=== PATIENT | female | born 1945 | race Caucasian/White ===

== ENCOUNTER 2022-03-20 11:54 | Day surgery (SDC) | payer MEDICARE, OTHER ==
--- NOTE | 2022-03-20 09:30 | HP ---
DATE OF SURGERY: 03/20/2022 HISTORY OF PRESENT ILLNESS: The patient is a 76-year-old change in bowel habits increase in alternating loose stools improves and worsens. No regular bloody stool. She has an occasional hemorrhoid bleed. She has no new pain. Family history no colon cancer. PAST MEDICAL HISTORY: Hypertension, reflux, hyperlipidemia, depression, heart disease, heartburn. PAST SURGICAL HISTORY: Appendectomy. Back surgery. Hemorrhoidectomy. Hysterectomy. Hernia repair. Pacemaker. MEDICATIONS: Protonix, multivitamins, probiotic, calcium, sertraline, calcium carbonate/vitamin D3, Align, atorvastatin, famotidine, metoprolol. ALLERGIES: CODEINE. PENICILLIN. ERYTHROMYCIN. BANANA. GLUTEN. FAMILY HISTORY: Heart disease, breast cancer. SOCIAL HISTORY: No smoking or alcohol abuse. REVIEW OF SYSTEMS: Fourteen systems reviewed. No chest pain or palpitations. Other systems negative or noncontributory as above and per preadmission questionnaire. PHYSICAL EXAMINATION: GENERAL: No acute distress. HEENT: Sclerae nonicteric. NECK: No JVD. CHEST: Equal excursion, nonlabored breathing. CVS: Regular rate and rhythm. ABDOMEN: Soft. No peritoneal signs. EXTREMITIES: No significant edema. NEURO: Alert, oriented, moving extremities symmetrically. RECTAL: Deferred timed to endoscopy exam. PSYCH: Appropriate mood and affect. IMPRESSION: Change in bowel habits, some rectal bleeding and history of polyps. I recommend colonoscopy, possible internal hemorrhoid banding causing some prolapse or bleeding intermittently despite trying manage her medically. She was shown the risk sheet explained the procedure in detail including bleeding or infection, risk of bowel injury or perforation, risk of missed or nondiagnosis or incomplete exam possibly requiring barium enema, other studies or procedures, general risk of anesthesia or sedation, risk of bowel prep or sedation but not limited to. Risk of bleeding or infection from hemorrhoid banding, risks of aches, pain, pressure, sphincter spasm or irritability, risk of progression of hemorrhoid disease possibly requiring other procedures, remote risk of major infection. General risk of anesthesia or sedation, risk of bowel prep but not limited to, consent obtained. Will proceed with outpatient colonoscopy possible internal hemorrhoid banding as an outpatient.
[2022-03-20] MEDS: Lactated Ringers 1,000 ML IV SCH (13:00)
[2022-03-20] MEDS ORDERED: Xylocaine-Mpf 2% 5 Ml Vial ONE (14:34)
[2022-03-20] MEDS ORDERED: DIPRIVAN 200 MG/20 ML IV ONE ×2 (14:34→14:52)
[2022-03-20] MEDS ORDERED: ATROPINE SULFATE 1MG ONE (14:42)
[2022-03-20 15:46] VITALS: O2SAT 95
[2022-03-20 16:05] VITALS: BP 144/95; PULSE 66
--- NOTE | 2022-03-21 10:54 | OP ---
SURGERY DATE/TIME: 03/20/2022 9417 PREOPERATIVE DIAGNOSES: 1) Change in bowel movements. 2) History of some rectal bleeding internal and external hemorrhoids. POSTOPERATIVE DIAGNOSES: 1) Grade II to III internal and external hemorrhoids. 2) Diverticulosis. 3) Small cecal polyps. 4) ASA Class II. 5) Fair bowel prep. PROCEDURES: 1) Colonoscopy to terminal ileum. 2) Retrograde ileoscopy. 3) Random ileal biopsies to evaluate for microscopic ileitis. 4) Random colon biopsies to evaluate for microscopic colitis. 5) Hot biopsy polypectomy small early cecal polyp versus hyperplastic lesions. 6) Internal hemorrhoid banding x3 columns. SURGEON: Dr. Jose Ramon Thomas. ANESTHESIA: MAC. ESTIMATED BLOOD LOSS: Minimal. INDICATIONS: As noted above. Risks and benefits explained in detail but not limited to and consent obtained. DESCRIPTION OF PROCEDURE AND FINDINGS: The patient is taken to the endoscopy room. MAC anesthesia induced. After official time out and no disagreement with planned procedure, digital rectal exam revealed she had some internal and external hemorrhoids otherwise no masses. Video colonoscope inserted and passed up through the slightly tortuous sigmoid, descending, transverse and ascending colon around to the cecum. Appendiceal orifice and valve well visualized and photo documented. Given her change in bowel habits, the scope was able to passed up the terminal ileum. Retrograde ileoscopy grossly unremarkable. Random cold biopsies taken in the ileum to evaluate for microscopic ileitis and to evaluate for other causes of change in bowel habits. The scope is pulled back. Small polyp in the cecum removed with hot biopsy polypectomy. Good hemostasis noted. Otherwise random cold biopsies were taken throughout the colon to evaluate for microscopic colitis as there was no evidence of any macroscopic colitis. She did have some mild diverticulosis. She did have some grade II to III internal and external hemorrhoids. There were no signs of any large polyps, masses or obstructing lesions. The prep was fair. Withdrawal time was around nine minutes. Once the scope is withdrawn, she remained under MAC anesthesia as were waiting for a retractor to become available. Half-stein retractor carefully inserted. She had prominent internal hemorrhoids. It is felt this was causing her bleeding intermittently. Hemorrhoid suction field sales trainer carefully applied to the left lateral column, this is repeated on right posterior column and right anterior column with a good tuft of tissue in each column. Good hemostasis was noted. The patient tolerated the procedure well. She did have a little bit of external hemorrhoid component but it was felt that she had good bands on the internal component. Retractors are removed. The patient tolerated the procedure well. There were no immediate complications. Findings discussed with the family out in the waiting area.
== END 2022-03-20 16:12 | disposition home or self-care (01) ==
LOC: SDC 11:54
PROVIDERS: ATTEND Surgery
DX: K57.30 Diverticulosis of large intestine without perforation or abscess without bleeding (principal); R19.4 Change in bowel habit; Z87.19 Personal history of other diseases of the digestive system; K64.4 Residual hemorrhoidal skin tags; K64.8 Other hemorrhoids; K63.5 Polyp of colon
CPT/HCPCS: 99100; J0461; J2704

== ENCOUNTER 2023-03-06 10:46 | Emergency (ER) | payer MEDICARE, OTHER ==
[2023-03-06 11:08] VITALS: TEMP 97
--- NOTE | 2023-03-06 11:19 | ERPHSYRPT ---
- History of Present Illness Time Seen by Provider: 03/06/23 11:17 Source: patient Exam Limitations: no limitations Patient Subjective Stated Complaint: Swelling Triage Nursing Assessment: Patient ambulated back to ED with slow and steady gait. Patient A+O X3. Patient's skin pink, warm and dry. Patient complains of swelling and occasional SOB. Patient has edema noted to BLE, BUE and face. 2+ pitting edema noted to BLE. Patient denies pain or discomfort. Lungs clear a/p omid. Physician History: Patient is a 77-year-old female presents to our ED for evaluation of swelling to her feet legs and face. Patient states that she was recently started on prednisone to treat temporal arteritis. Since then patient developed swelling. Patient's bullet maker started her on Lasix. Patient states her swelling continued so the Lasix dose was increased from 40 daily to 40 twice daily. Patient states that she feels that her swelling has not improved. However she has noticed that her urine output has decreased. Patient called her bullet maker who advised her to come to our ED. Patient denies pain. Swelling observed on her face upper extremities and lower extremities. No other symptomology. No fever. No nausea vomiting or diaphoresis. No trauma. Symptoms are mild in intensity. No specific worsening improving factors. Patient voices no other complaints or concerns at this time. Portions of this note were created with voice recognition technology. There may be grammatical, spelling, punctuation or sound alike errors Timing/Duration: yesterday Severity: moderate Modifying Factors: Improves With: nothing Associated Symptoms: denies symptoms Allergies/Adverse Reactions: codeine Allergy (Verified 03/06/23 10:59) erythromycin base Allergy (Verified 03/06/23 10:59) gluten Allergy (Verified 03/06/23 10:59) Penicillins Allergy (Verified 03/06/23 10:59) banana Adverse Reaction (Mild, Verified 03/06/23 10:59) Nausea Home Medications: RX: PANTOPRAZOLE 40 mg Tablet [Protonix 40MG Tablet] 40 mg PO DAILY 12/12/14 [History] RX: Calcium Carbonate/Vitamin D3 [Calcium 600-Vit D3 800 Tablet] 1 each PO DAILY 01/27/15 [History] RX: Bifidobacterium Infantis [Align] 4 mg PO DAILY 07/04/15 [History] RX: Metoprolol Tartrate 25 mg [Lopressor 25MG Tab] 37.5 mg PO BID 07/04/15 [History] RX: Atorvastatin Calcium [Lipitor] 20 mg PO DAILY 02/07/22 [History] RX: Calcium Polycarbophil [Fiber] 625 mg PO DAILY 02/07/22 [History] RX: Famotidine 20 mg PO DAILY 02/07/22 [History] RX: Sertraline HCl [Zoloft] 25 mg PO DAILY 02/07/22 [History] Hx Tetanus, Diphtheria Vaccination/Date Given: Yes (ALLERGIC) Hx Influenza Vaccination/Date Given: Yes Hx Pneumococcal Vaccination/Date Given: No Immunizations Up to Date: Yes Travel Risk - International Travel Have you traveled outside of the country in past 3 weeks: No - Coronavirus Screening Are you exhibiting any of the following symptoms?: No Close contact with a COVID-19 positive Pt in past 14-21 Days: No - Vaccine Status Have you recieved a Covid-19 vaccination: No - Review of Systems Constitutional: No Symptoms, No Fever, No Chills Eyes: No Symptoms Ears, Nose, & Throat: No Symptoms Respiratory: No Symptoms, No Cough, No Dyspnea Cardiac: No Symptoms, No Chest Pain, No Edema, No Syncope Abdominal/Gastrointestinal: No Symptoms, No Abdominal Pain, No Nausea, No Vomiting, No Diarrhea Genitourinary Symptoms: No Symptoms, No Dysuria Musculoskeletal: No Symptoms, No Back Pain, No Neck Pain Skin: No Symptoms, No Rash Neurological: No Symptoms, No Dizziness, No Focal Weakness, No Sensory Changes Psychological: No Symptoms Endocrine: No Symptoms Hematologic/Lymphatic: No Symptoms Immunological/Allergic: No Symptoms All Other Systems: Reviewed and Negative - Past Medical History Pertinent Past Medical History: Yes Neurological History: TIA ENT History: No Pertinent History Cardiac History: Arrhythmia, Other Respiratory History: No Pertinent History Endocrine Medical History: No Pertinent History Musculoskeletal History: No Pertinent History GI Medical History: No Pertinent History History: No Pertinent History Psycho-Social History: No Pertinent History Female Reproductive Disorders: No Pertinent History Other Medical History: stomach issues. liver ablasion - Past Surgical History Past Surgical History: Yes Neuro Surgical History: No Pertinent History Cardiac: Pacemaker Respiratory: No Pertinent History Gastrointestinal: Appendectomy, Hemorrhoidectomy, Hernia Repair Genitourinary: No Pertinent History Musculoskeletal: No Pertinent History Female Surgical History: Hysterectomy Other Surgical History: back surgery, ovarian cyst removal - Social History Smoking Status: Never smoker Exposure to second hand smoke: No Drug Use: none Patient Lives Alone: No - Nursing Vital Signs Nursing Vital Signs: Initial Vital Signs Pulse Rate 71 03/06/23 11:00 Respiratory Rate 20 03/06/23 11:00 Blood Pressure 128/76 03/06/23 11:00 O2 Sat by Pulse Oximetry 95 03/06/23 11:00 Pain Scale Pain Intensity 3 - Physical Exam General Appearance: no apparent distress, alert Eye Exam: PERRL/EOMI, eyes nml inspection Ears, Nose, Throat Exam: normal ENT inspection, TMs normal, pharynx normal, moist mucous membranes Neck Exam: normal inspection, non-tender, supple, full range of motion Respiratory Exam: normal breath sounds, lungs clear, airway intact, No respiratory distress Cardiovascular Exam: regular rate/rhythm, normal heart sounds, normal peripheral pulses Gastrointestinal/Abdomen Exam: soft, normal bowel sounds, No tenderness, No mass Back Exam: normal inspection, normal range of motion, No CVA tenderness, No vertebral tenderness Extremity Exam: normal inspection, normal range of motion, pelvis stable, other (2+ pitting edema bilateral lower extremities) Neurologic Exam: alert, oriented x 3, cooperative, normal mood/affect, sensation nml, No motor deficits Skin Exam: normal color, warm, dry, No rash Lymphatic Exam: No adenopathy SpO2 Interpretation: normal SpO2: 96 O2 Delivery: Room Air - Course Nursing assessment & vital signs reviewed: Yes EKG Interpreted by Me: RATE (66), NORMAL AXIS, NORMAL INTERVALS, Other (Atrial paced rhythm. Borderline T wave abnormalities) - Radiology Exams Chest X-ray Interpretation: Teleradiologist Report (Hiatal hernia otherwise no acute findings) - CT Exams Abdomen/Pelvis CT Interpretation: Tele-radiologist Report (3 x 10 mm right middle lobe subpleural noncalcified nodule with tiny right effusion, large hiatal hernia, diverticulosis, hepatic cyst, left nephrolithiasis, atherosclerotic disease, chronic bony findings) Ordered Tests: Active Orders 24 hr Category Date Time Status Reserve Officer STAT Care 03/06/23 11:20 Active EKG-ER Only STAT Care 03/06/23 11:19 Active IV Insertion STAT Care 03/06/23 11:19 Active Pulse Oximetry (ED) STAT Care 03/06/23 11:19 Active ABDOMEN AND PELVIS W/0 CONTRAS [CT] Stat Exams 03/06/23 14:59 Completed CHEST 1 VIEW (PORTABLE) Stat Exams 03/06/23 13:36 Completed CBC W DIFF Stat Lab 03/06/23 11:12 Completed CMP Stat Lab 03/06/23 11:12 Completed NT PRO BNPII Stat Lab 03/06/23 11:12 Completed TROPONIN Q4H Lab 03/06/23 11:12 Completed TROPONIN Q4H Lab 03/06/23 15:07 Completed TROPONIN Q4H Lab 03/06/23 19:30 Ordered UA W/RFX UR CULTURE Stat Lab 03/06/23 11:21 Completed Lab/Rad Data: Laboratory Result Diagrams 03/06/23 11:12 03/06/23 11:12 Laboratory Results 03/06/23 03/06/23 03/06/23 Range/Units 15:07 11:21 11:12 WBC (4.0-10.5) x10^3/uL RBC (4.1-5.4) x10^6/uL Hgb (12.0-16.0) g/dL Hct (35-47) % MCV (78-100) fL MCH (26-32) pg MCHC (32-36) g/dL RDW (11.5-14.0) % Plt Count (150-450) x10^3/uL MPV (7.5-11.0) fL Gran % (36.0-66.0) % Immature Gran % (Auto) (0.00-0.4) % Nucleat RBC Rel Count (0.00-0.1) % Eos # (Auto) (0-0.5) x10^3/uL Immature Gran # (Auto) (0.00-0.03) x10^3u/L Absolute Lymphs (auto) (1.0-4.6) x10^3/uL Absolute Monos (auto) (0.0-1.3) x10^3/uL Absolute Nucleated RBC (0.00-0.01) x10^3u/L Lymphocytes % (24.0-44.0) % Monocytes % (0.0-12.0) % Eosinophils % (0.00-5.0) % Basophils % (0.0-0.4) % Absolute Granulocytes (1.4-6.9) x10^3/uL Basophils # (0-0.4) x10^3/uL Sodium (137-145) mmol/L Potassium (3.5-5.1) mmol/L Chloride (98-107) mmol/L Carbon Dioxide (22-30) mmol/L Anion Gap (5-15) MEQ/L BUN (7-17) mg/dL Creatinine (0.52-1.04) mg/dL Estimated GFR ML/MIN Glucose (74-106) mg/dL Calcium (8.4-10.2) mg/dL Total Bilirubin (0.2-1.3) mg/dL AST (14-36) U/L ALT (0-35) U/L Alkaline Phosphatase (38-126) U/L Troponin I 0.021 0.023 (0.000-0.034) ng/mL NT-Pro-B Natriuret Pep (<300) pg/mL Serum Total Protein (6.3-8.2) g/dL Albumin (3.5-5.0) g/dL Urine Color Yellow (Yellow) Urine Appearance Clear (Clear) Urine pH 7.5 (4.6-8.0) Ur Specific [place] <=1.005 (1.005-1.030) Urine Protein Negative (Negative) Urine Glucose (UA) Negative (Negative) mg/dL Urine Ketones Negative (Negative) Urine Blood Negative (Negative) Urine Nitrite Negative (Negative) Urine Bilirubin Negative (Negative) Urine Urobilinogen 0.2 (0.2) mg/dL Ur Leukocyte Esterase Negative (Negative) U Hyaline Cast (Auto) NONE SEEN (0-2) /LPF Urine Microscopic RBC 0-2 (0-5) /HPF Urine Microscopic WBC 0-2 (0-5) /HPF Ur Epithelial Cells None Seen (None Seen) /HPF Urine Bacteria None Seen (None Seen) /HPF Urine Culture Reflexed NO (NO) 03/06/23 03/06/23 Range/Units 11:12 11:12 WBC 7.5 (4.0-10.5) x10^3/uL RBC 4.11 (4.1-5.4) x10^6/uL Hgb 12.9 (12.0-16.0) g/dL Hct 39.3 (35-47) % MCV 95.6 (78-100) fL MCH 31.4 (26-32) pg MCHC 32.8 (32-36) g/dL RDW 16.0 H (11.5-14.0) % Plt Count 156 (150-450) x10^3/uL MPV 9.6 (7.5-11.0) fL Gran % 70.6 H (36.0-66.0) % Immature Gran % (Auto) 4.8 H (0.00-0.4) % Nucleat RBC Rel Count 0.3 H (0.00-0.1) % Eos # (Auto) 0.08 (0-0.5) x10^3/uL Immature Gran # (Auto) 0.36 H (0.00-0.03) x10^3u/L Absolute Lymphs (auto) 1.34 (1.0-4.6) x10^3/uL Absolute Monos (auto) 0.38 (0.0-1.3) x10^3/uL Absolute Nucleated RBC 0.02 H (0.00-0.01) x10^3u/L Lymphocytes % 18.0 L (24.0-44.0) % Monocytes % 5.1 (0.0-12.0) % Eosinophils % 1.1 (0.00-5.0) % Basophils % 0.4 (0.0-0.4) % Absolute Granulocytes 5.26 (1.4-6.9) x10^3/uL Basophils # 0.03 (0-0.4) x10^3/uL Sodium 138 (137-145) mmol/L Potassium 3.6 (3.5-5.1) mmol/L Chloride 105 (98-107) mmol/L Carbon Dioxide 29 (22-30) mmol/L Anion Gap 7.6 (5-15) MEQ/L BUN 25 H (7-17) mg/dL Creatinine 0.91 (0.52-1.04) mg/dL Estimated GFR > 60.0 ML/MIN Glucose 98 (74-106) mg/dL Calcium 8.8 (8.4-10.2) mg/dL Total Bilirubin 0.70 (0.2-1.3) mg/dL AST 27 (14-36) U/L ALT 31 (0-35) U/L Alkaline Phosphatase 80 (38-126) U/L Troponin I (0.000-0.034) ng/mL NT-Pro-B Natriuret Pep 406 (<300) pg/mL Serum Total Protein 6.0 L (6.3-8.2) g/dL Albumin 3.7 (3.5-5.0) g/dL Urine Color (Yellow) Urine Appearance (Clear) Urine pH (4.6-8.0) Ur Specific [place] (1.005-1.030) Urine Protein (Negative) Urine Glucose (UA) (Negative) mg/dL Urine Ketones (Negative) Urine Blood (Negative) Urine Nitrite (Negative) Urine Bilirubin (Negative) Urine Urobilinogen (0.2) mg/dL Ur Leukocyte Esterase (Negative) U Hyaline Cast (Auto) (0-2) /LPF Urine Microscopic RBC (0-5) /HPF Urine Microscopic WBC (0-5) /HPF Ur Epithelial Cells (None Seen) /HPF Urine Bacteria (None Seen) /HPF Urine Culture Reflexed (NO) - Progress Progress: improved Progress Note: Patient is a 77-year-old female presents to our ED for evaluation of generalized swelling. Patient recently started steroids for temporal arteritis. Patient and her bullet maker attribute the swelling to the steroid. Patient was started on Lasix. Patient is here because her swelling appears to have gotten worse. She has no other symptomology. No pain. No chest pain or shortness of breath. Although while here patient developed left mid abdominal pain while transitioning from sitting at the side of the bed to lying. We ordered a CAT scan. CAT scan abdomen pelvis shows no acute pathology. There is a right-sided lung nodule with a small effusion. Patient was informed of these findings along with family members. Patient understands the importance of follow-up regarding this lung nodule. Patient reports that she has a follow-up appointmen t with her primary care doctor and bullet maker tomorrow. EKG shows a paced rhythm. Chest x-ray shows a new hiatal hernia otherwise unremarkable. CBC CMP negative. Urinalysis negative. Will discharge home. Family at bedside. They voiced no other complaints or concerns at this time. Troponin negative x2 Portions of this note were created with voice recognition technology. There may be grammatical, spelling, punctuation or sound alike errors Complexity of problem addressed is moderate acute No critical care time Complex of data reviewed and analyzed is moderate. Test ordered test reviewed. Findings of laboratory and imaging studies were analyzed and clinically correlated with history and physical examination. Risk of complication and or risk of morbidity/mortality of patient management is low. Vital stable. Time spent to discharge patient is approximately 15 minutes. an of care established for shared decision making. No social determinants of health present to impede follow-up. Daughter and at bedside. All of their questions were answered. Patient will follow-up with her primary care doctor and bullet maker tomorrow as scheduled. Portions of this note were created with voice recognition technology. There may be grammatical, spelling, punctuation or sound alike errors 03/06/23 18:15 Counseled pt/family regarding: lab results, diagnosis, need for follow-up, rad results - Departure Departure Disposition: Home Clinical Impression: Right noncalcified lung nodule, Small right pleural effusion, Large hiatal hernia, Diverticulosis, Hepatic cyst, Left nephrolithiasis, Chronic bony findings, Atherosclerotic disease, Swelling Condition: Stable Critical Care Time: No Referrals: ADRIANA PATRICIO, CARLOS [Primary Care Provider] - Follow up/PCP as directed Instructions: Pleural effusion, Hiatal hernia Additional Instructions: Discharge/Care Plan BRANDO COLLINS was seen on 03/06/23 in the Emergency Room. The patient was counseled regarding Diagnosis,Lab results, Imaging studies, need for follow up and when to return to the Emergency Room. Prescriptions given: Discharge Note I have spoken with the patient and/or caregivers. I have explained the patient's condition, diagnosis and treatment plan based on the information available to me at this time. I have answered the patient's and/or caregiver's questions and addressed any concerns. The patient and/or caregivers have as good understanding of the patient's diagnosis, condition and treatment plan as can be expected at this point. The vital signs have been stable. The patient's condition is stable and appropriate for discharge from the emergency department. The patient will pursue further outpatient evaluation with the primary care physician or other designated or consulting physician as outlined in the discharge instructions. The patient and/or caregivers are agreeable to this plan of care and follow-up instructions have been explained in detail. The patient and/or caregivers have received these instruction. The patient/and or caregivers are aware that any significant change in condition or worsening of symptoms should prompt an immediate return to this or the closest emergency department or call 911.
[2023-03-06 11:25] LABS: Absolute Neutrophil Ct (ANC) 5.26 x10^3/uL (1.4-6.9); BASOPHIL % 0.4 % (0.0-0.4); Basophil (Absolute #) 0.03 x10^3/uL (0-0.4); Eosinophil % 1.1 % (0.00-5.0); Eosinophil (Absolute #) 0.08 x10^3/uL (0-0.5); Hematocrit 39.3 % (35-47); Hemoglobin 12.9 g/dL (12.0-16.0); IMMATURE GRAN # 0.36 x10^3u/L (0.00-0.03); IMMATURE GRAN % 4.8 % (0.00-0.4); Lymphocyte (Absolute #) 1.34 x10^3/uL (1.0-4.6); Mean Cell Volume 95.6 fL (78-100); Mean Corpuscular Hemoglobin 31.4 pg (26-32); Mean Corpuscular Hgb Concent. 32.8 g/dL (32-36); Mean Platelet Volume 9.6 fL (7.5-11.0); Monocyte (Absolute #) 0.38 x10^3/uL (0.0-1.3); Monocytes % 5.1 % (0.0-12.0); NUCLEATED RBC # 0.02 x10^3u/L (0.00-0.01); NUCLEATED RBC % 0.3 % (0.00-0.1); Neutrophil % 70.6 % (36.0-66.0); Platelet Count 156 x10^3/uL (150-450); Red Blood Count 4.11 x10^6/uL (4.1-5.4); White Blood Count 7.5 x10^3/uL (4.0-10.5)
[2023-03-06 11:51] LABS: ALBUMIN 3.7 g/dL (3.5-5.0); ALKALINE PHOSPHATASE 80 U/L (38-126); ANION GAP 7.6 MEQ/L (5-15); BLOOD UREA NITROGEN 25 mg/dL (7-17); CHLORIDE 105 mmol/L (98-107); Calcium 8.8 mg/dL (8.4-10.2); Carbon Dioxide 29 mmol/L (22-30); Creatinine 1 0.91 mg/dL (0.52-1.04); EST GLOMERULAR FILTRATION RATE > 60.0 ML/MIN; Glucose 98 mg/dL (74-106); NT PRO BNPII 406 pg/mL (<300); Potassium 3.6 mmol/L (3.5-5.1); SGOT/AST 27 U/L (14-36); SGPT/ALT 31 U/L (0-35); SODIUM 138 mmol/L (137-145)
[2023-03-06 12:14] LABS: Appearance Clear (Clear); Bacteria None Seen /HPF (None Seen); Bilirubin Negative (Negative); Blood Negative (Negative); Epithelial Cells None Seen /HPF (None Seen); Glucose, Urine Negative (Negative); Hyaline Casts NONE SEEN /LPF (0-2); Ketones Negative (Negative); Leukocyte Esterase Negative (Negative); Nitrite Negative (Negative); Ph 7.5 (4.6-8.0); Protein,Urine Dip Negative (Negative); RBC 0-2 /HPF (0-5); Specific Gravity <=1.005 (1.005-1.030); Urobilinogen 0.2 mg/dL (0.2); WBC 0-2 /HPF (0-5)
[2023-03-06 12:18] LABS: ADD URINE CULTURE? NO (NO)
--- NOTE | 2023-03-06 14:14 | XRAY ---
Indication: Chest pain. Comparison: November 28, 2019 Portable chest inflated and remains clear. Heart not enlarged again with left pacemaker. New hiatal hernia. Bony thorax intact.
--- NOTE | 2023-03-06 16:38 | XRAY ---
Indication: Left abdomen pain. Bilateral extremity swelling. Multiple contiguous axial images obtained through the abdomen and pelvis without contrast. Comparison: CT abdomen May 29, 2017 Lung bases again demonstrates minimal bibasilar subsegmental atelectasis/scarring. New incompletely visualized 3 x 10 mm right middle lobe subpleural noncalcified nodule and tiny right effusion. Heart not enlarged. New large hiatal hernia with partial intrathoracic stomach. Noncontrasted stomach and bowel loops nonobstructed. Again previous appendectomy and hysterectomy. Mild sigmoid diverticulosis without diverticulitis not previously imaged. Again a few tiny hepatic cysts and nonobstructing left renal punctate calculus. No free fluid/air. Remaining liver, gallbladder, pancreas, spleen, adrenal glands, kidneys, ureters, and bladder are unremarkable for noncontrast exam. Again minimal aortoiliac calcifications without AAA. Osseous structures intact again with osteopenia and mild lower lumbar degenerative changes. Impression: 1. New large hiatal hernia with partial intrathoracic stomach. 2. New incompletely visualized right middle lobe noncalcified nodule and tiny nonspecific right pleural effusion. 3. Chronic findings including sigmoid diverticulosis, hepatic cysts, nonobstructing left renal punctate calculus, arteriosclerotic disease, and chronic bony findings.
[2023-03-06 18:00] VITALS: O2SAT 96
[2023-03-06 18:02] VITALS: BP 134/92; PULSE 66
[2023-03-06 18:24] VITALS: RESP 18
== END 2023-03-06 18:36 | disposition home or self-care (01) ==
LOC: ED 10:46
DX: R91.1 Solitary pulmonary nodule (principal); J90 Pleural effusion, not elsewhere classified; K44.9 Diaphragmatic hernia without obstruction or gangrene; K57.90 Diverticulosis of intestine, part unspecified, without perforation or abscess without bleeding; K76.89 Other specified diseases of liver; N20.0 Calculus of kidney; I70.90 Unspecified atherosclerosis; M85.80 Other specified disorders of bone density and structure, unspecified site; M47.816 Spondylosis without myelopathy or radiculopathy, lumbar region; R60.9 Edema, unspecified; Z79.899 Other long term (current) drug therapy; Z28.310 Unvaccinated for COVID-19
CPT/HCPCS: 36000; 36415; 71045; 74176; 80053; 81001; 83880; 84484; 85025; 93005; 93041; 94760; 99284

== ENCOUNTER 2023-09-17 09:04 | Day surgery (SDC) | payer MEDICARE ==
[2023-09-17] MEDS ORDERED: Lactated Ringers 1,000 ML IV SCH (09:30)
[2023-09-17] MEDS ORDERED: Lactated Ringers 1,000 ML IV ONE (09:51)
--- NOTE | 2023-09-17 09:58 | HP ---
DATE OF SURGERY: 09/17/2023 HISTORY OF PRESENT ILLNESS: The patient is a 77-year-old with increased reflux starting four weeks ago, funny feeling upper esophagus mostly food going down okay and liquids going down okay. Family history of negative for esophageal cancer. Last EGD years ago. PAST MEDICAL HISTORY: Hypertension, reflux, hyperlipidemia, depression, heartburn. PAST SURGICAL HISTORY: Pacemaker/defibrillator. Appendectomy. Hemorrhoidectomy. Back surgery. Umbilical hernia. Hysterectomy. MEDICATIONS: Potassium chloride, amlodipine, Lasix, probiotic, multivitamin, calcium with vitamin D, sertraline, atorvastatin, pantoprazole, metoprolol. ALLERGIES: CODEINE. ERYTHROMYCIN. PENICILLIN. BANANA (NAUSEA). GLUTEN. FAMILY HISTORY: Breast cancer. Myocardial infarction. SOCIAL HISTORY: No smoking or alcohol abuse. REVIEW OF SYSTEMS: Twelve systems reviewed. No chest pain or palpitations. Other systems negative or noncontributory as above and per preadmission questionnaire. PHYSICAL EXAMINATION: Height 4 feet 11 inches. BMI 35. GENERAL: No acute distress. HEENT: Sclerae nonicteric. EOMI. Oral mucous membranes moist. NECK: No JVD. CHEST: Equal excursion, nonlabored breathing. CVS: Regular rate and rhythm. ABDOMEN: Soft. No peritoneal signs. EXTREMITIES: No cyanosis or edema. NEURO: Alert, oriented, moving extremities symmetrically. No gross motor deficits noted. PSYCH: Appropriate mood and affect. SKIN: Dry. IMPRESSION: Increased reflux needs EGD possible biopsy possible dilatation. Risks explained in detail but not limited to bleeding or infection, risk of bowel injury or perforation, risk of missed or nondiagnosis or incomplete exam possibly requiring barium swallow, other studies or procedures, possible no improvement in swallowing possibly requiring other procedures, dilation or referral. Possible narrowed area possible neurological or functional problem that would not benefit from dilatation. If dilatation performed and does improve swallowing might need repeated again down the road. The patient agrees to the procedure EGD possible biopsy possible dilatation as an outpatient. Otherwise, continue medications for hypertension and hyperlipidemia.
[2023-09-17] MEDS ORDERED: DIPRIVAN 200 MG/20 ML IV ONE (11:59)
[2023-09-17] MEDS ORDERED: Xylocaine-Mpf 2% 5 Ml Vial ONE (11:59)
[2023-09-17] MEDS ORDERED: Ephedrine Sulfate 50 MG/ML ONE (12:10)
[2023-09-17 13:01] VITALS: O2SAT 93
[2023-09-17 13:27] VITALS: BP 103/67; PULSE 68; RESP 16; TEMP 97.9
--- NOTE | 2023-09-18 09:17 | OP ---
SURGERY DATE/TIME: 09/17/2023 1202 PREOPERATIVE DIAGNOSIS: Increased reflux, history of some dysphagia upper esophagus, funny feeling upper esophagus. POSTOPERATIVE DIAGNOSES: 1) Proximal esophageal narrowing and spam without evidence of any mass or lesion endoluminally. 2) Small hiatal hernia. 3) Mild gastric erythema. 4) ASA Class III. PROCEDURES: 1) EGD with cold biopsy of antrum to evaluate for Helicobacter pylori. 2) Cold biopsy distal esophagus. 3) Proximal esophageal dilatation (20 balloon). SURGEON: Dr. Sidney Thmoas M.D. ANESTHESIA: MAC. QUANTITATIVE BLOOD LOSS: Minimal. INDICATIONS: As noted above and consent obtained. DESCRIPTION OF PROCEDURE AND FINDINGS: The patient is taken to the endoscopy room. MAC anesthesia introduced. After official time out and no disagreement with planned procedure, a bite block positioned. Video gastroscope passed down the oropharynx, proximal esophagus. No fred lesion or mass to biopsy but there was spasm and tightening there. The scope was able to be just passed through here. As she is having symptoms in that area, it was felt it warranted dilatation at the end of the procedure. Scope passed back down to the gastroesophageal junction which was about 32 to 33 cm. Z-line was fairly crisp. She did have some small hiatal hernia. Scope passed down through the stomach to the patent pylorus to the junction of the third and fourth portion of the duodenum. Duodenum grossly unremarkable. No signs of ulcers or lesions. Back in the stomach she did have some mild gastric erythema. Cold biopsy taken to evaluate for Helicobacter pylori. Good hemostasis noted. On retroflex, she did have a small hiatal hernia. The scope is straightened. No signs of any ulcers. No signs of any lesions. Small hiatal hernia. The gastroesophageal junction was about 32 to 33 cm. Cold biopsy taken distal esophageal for path. Good hemostasis noted. There were no signs of any erosions. No signs of any gross Franklin's. No signs of any obvious masses to account for her swallowing problem. She did have a spasm and narrowing at the proximal esophagus. It was felt it warranted dilatation. Scope passed back down the stomach. The 20 balloon catheter is carefully inserted, pulled back up in the stomach and in wide open area and pulled up through the narrowed area in the proximal esophagus and gradually inflated first stage for 15 to 30 seconds, second stage 15 to 30 seconds and final stage for approximately 2 minutes with 20 balloon catheter. It was then decompressed. The balloon catheter removed. The scope more easily passed through this area. Back into the stomach and carefully withdrawn. There were no signs of any full thickness issues or injury secondary to dilatation. Findings discussed with the family out in the waiting area.
== END 2023-09-17 13:35 | disposition home or self-care (01) ==
LOC: SDC 09:04
PROVIDERS: ATTEND Surgery
DX: K22.2 Esophageal obstruction (principal); K21.9 Gastro-esophageal reflux disease without esophagitis; Z87.19 Personal history of other diseases of the digestive system; K44.9 Diaphragmatic hernia without obstruction or gangrene; K31.89 Other diseases of stomach and duodenum; Z80.3 Family history of malignant neoplasm of breast
CPT/HCPCS: 99100; C1726; J2704

== ENCOUNTER 2023-12-19 23:42 | Emergency (ER) | payer MEDICARE ==
[2023-12-19 23:55] VITALS: TEMP 96.9; O2SAT 95
[2023-12-20 00:21] LABS: Bacteria None Seen /HPF (None Seen); Bilirubin Negative (Negative); Blood Large (Negative); Epithelial Cells None Seen /HPF (None Seen); Glucose, Urine Negative (Negative); Hyaline Casts NONE SEEN /LPF (0-2); Ketones Negative (Negative); Leukocyte Esterase Moderate (Negative); Nitrite Negative (Negative); Ph 5.5 (4.6-8.0); Protein,Urine Dip 30 (Negative); RBC >100 /HPF (0-5); Urobilinogen 0.2 mg/dL (0.2); WBC 21-50 /HPF (0-5)
[2023-12-20 00:23] LABS: ADD URINE CULTURE? YES (NO); Appearance Sl Cloudy* (Clear)
[2023-12-20 00:40] VITALS: BP 131/85; PULSE 60; RESP 18
[2023-12-20] MEDS ORDERED: Levofloxacin 500 MG Tablet ONE (00:40)
[2023-12-20] MEDS: Levofloxacin 500 MG Tablet PO ONE (00:40)
--- NOTE | 2023-12-20 00:40 | ERPHSYRPT ---
- History of Present Illness Time Seen by Provider: 12/20/23 00:15 Source: patient, family Exam Limitations: no limitations Patient Subjective Stated Complaint: noticed some blood in my urine around 10pm tonight Triage Nursing Assessment: pt ambulated into ER without difficulty, spouse at bedside. Pt alert and oriented x4. Pt c/o having blood in her urine this evening around 10pm when she went to the bathroom. Pt c/o flank pain, urgency and frequency as well. Pt denies any pain. Abd lg, soft with active bs x4 quad, nontender. LBM 12/18/23. Physician History: This is a 78-year-old white female patient who presents to the emergency department by private vehicle brought in by her because of mild flank discomfort and hematuria. Patient denies chest pain. Patient denies shortness of breath. Patient denies abdominal pain. Patient noticed that she had frequency of urine as well. Patient is concerned she have a urinary tract infection. She has had similar symptoms in the past. Patient states that she has taken sulfa drugs in the past but it did not sit well with her. She does not have a true allergy to it though. Timing/Duration: today Activites at Onset: none Quality: other (Bilateral flank discomfort) Onset Location: generalized flank (Mild) Pain Radiation: none Severity of Pain-Max: mild Severity of Pain-Current: mild Sexual intercourse history: non-contributory Modifying Factors: Improves With: nothing Associated Symptoms: urinary frequency (And associated hematuria), No abdominal pain, No fever, No chills, No loss of bladder control Allergies/Adverse Reactions: codeine Allergy (Verified 12/20/23 00:04) erythromycin base Allergy (Verified 12/20/23 00:04) gluten Allergy (Verified 12/20/23 00:04) Penicillins Allergy (Verified 12/20/23 00:04) banana Adverse Reaction (Mild, Verified 12/20/23 00:04) Nausea Home Medications: PANTOPRAZOLE 40 mg Tablet [Protonix 40MG Tablet] 40 mg PO DAILY 12/12/14 [History] Calcium Carbonate/Vitamin D3 [Calcium 600-Vit D3 800 Tablet] 1 each PO DAILY 01/27/15 [History] Metoprolol Tartrate 25 mg [Lopressor 25MG Tab] 1.5 tab PO BID 07/04/15 [History] Atorvastatin Calcium [Lipitor] 20 mg PO DAILY 02/07/22 [History] Famotidine 40 mg PO HS 02/07/22 [History] Sertraline HCl [Zoloft] 60 mg PO HS 02/07/22 [History] Amlodipine Besylate 5 mg [Norvasc 5 mg] 2.5 mg PO DAILY 09/17/23 [History] Furosemide 40 mg [Lasix 40 MG] 40 mg PO DAILY PRN PRN 09/17/23 [History] Potassium Chloride 1 cap PO DAILY PRN PRN 09/17/23 [History] Clobetasol Propionate/Emoll [Clobetasol Emollient 0.05% Crm] 1 applic INTRAVAGIN DAILY 12/20/23 [History] Hx Tetanus, Diphtheria Vaccination/Date Given: No (allergic to) Hx Influenza Vaccination/Date Given: Yes Hx Pneumococcal Vaccination/Date Given: Yes Travel Risk - International Travel Have you traveled outside of the country in past 3 weeks: No - Emerging Infectious Disease Are you exhibiting symptoms associated with any current EIDs: No - Review of Systems Constitutional: No Symptoms Eyes: No Symptoms Ears, Nose, & Throat: No Symptoms Respiratory: No Symptoms Cardiac: No Symptoms Abdominal/Gastrointestinal: No Symptoms Genitourinary Symptoms: Frequency, Hematuria, Urgency, Flank Pain (Mild discomfort generally) Musculoskeletal: No Symptoms Skin: No Symptoms Neurological: No Symptoms Psychological: No Symptoms Endocrine: No Symptoms Hematologic/Lymphatic: No Symptoms Immunological/Allergic: No Symptoms All Other Systems: Reviewed and Negative - Past Medical History Pertinent Past Medical History: Yes Neurological History: TIA ENT History: No Pertinent History Cardiac History: Arrhythmia, Other Respiratory History: No Pertinent History Endocrine Medical History: No Pertinent History Musculoskeletal History: No Pertinent History GI Medical History: GERD History: No Pertinent History Psycho-Social History: No Pertinent History Female Reproductive Disorders: No Pertinent History Other Medical History: liver ablasion - Past Surgical History Past Surgical History: Yes Neuro Surgical History: No Pertinent History Cardiac: Pacemaker Respiratory: No Pertinent History Gastrointestinal: Appendectomy, Hemorrhoidectomy, Hernia Repair Genitourinary: No Pertinent History Musculoskeletal: No Pertinent History Female Surgical History: Hysterectomy Other Surgical History: back surgery, ovarian cyst removal - Social History Smoking Status: Never smoker Exposure to second hand smoke: No Drug Use: none Patient Lives Alone: No - Social Determinants of Health Will the patient participate in the screening: Yes Do you worry about a steady place to live?: No Do you have any problems with any of the following?: No known problems In the past 12 months,have you had to go without utilities?: No Transportation Issues: No Has anyone in your support network made you feel unsafe?: No Have you or anyone in your house had to go without enough: No - Nursing Vital Signs Nursing Vital Signs: Initial Vital Signs Temperature 96.9 F 12/19/23 23:53 Pulse Rate 69 12/19/23 23:53 Respiratory Rate 16 12/19/23 23:53 Blood Pressure 126/77 12/19/23 23:53 O2 Sat by Pulse Oximetry 95 12/19/23 23:53 Pain Scale Pain Intensity 0 - Physical Exam General Appearance: no apparent distress, alert, obese Eye Exam: PERRL/EOMI, eyes nml inspection Ears, Nose, Throat Exam: normal ENT inspection, moist mucous membranes Neck Exam: normal inspection, non-tender, supple, full range of motion Respiratory Exam: airway intact, No chest tenderness, No respiratory distress Gastrointestinal/Abdomen Exam: soft, normal bowel sounds, No tenderness Pelvic Exam: not done Rectal Exam: not done Back Exam: normal inspection, normal range of motion, No CVA tenderness, No vertebral tenderness Extremity Exam: normal inspection, normal range of motion, pelvis stable Neurologic Exam: alert, oriented x 3, cooperative, property worker II-XII nml as tested, no rmal mood/affect, nml cerebellar function, nml station & gait, sensation nml Skin Exam: normal color, warm, dry Lymphatic Exam: No adenopathy SpO2 Interpretation: normal SpO2: 95 O2 Delivery: Room Air - Course Nursing assessment & vital signs reviewed: Yes Ordered Tests: Active Orders 24 hr Category Date Time Status CULTURE,URINE Stat Lab 12/19/23 23:57 Received UA W/RFX UR CULTURE Stat Lab 12/19/23 23:57 Completed Lab/Rad Data: Laboratory Results 12/19/23 Range/Units 23:57 Urine Color Red A (Yellow) Urine Appearance Sl Cloudy* A (Clear) Urine pH 5.5 (4.6-8.0) Ur Specific [place] 1.010 (1.005-1.030) Urine Protein 30 (Negative) Urine Glucose (UA) Negative (Negative) mg/dL Urine Ketones Negative (Negative) Urine Blood Large A (Negative) Urine Nitrite Negative (Negative) Urine Bilirubin Negative (Negative) Urine Urobilinogen 0.2 (0.2) mg/dL Ur Leukocyte Esterase Moderate A (Negative) U Hyaline Cast (Auto) NONE SEEN (0-2) /LPF Urine Microscopic RBC >100 A (0-5) /HPF Urine Microscopic WBC 21-50 A (0-5) /HPF Ur Epithelial Cells None Seen (None Seen) /HPF Urine Bacteria None Seen (None Seen) /HPF Urine Culture Reflexed YES (NO) - Progress Progress: unchanged Air Movement: good Progress Note: 12/20/23 00:38 My medical decision making and the assignment of low complexity to this patient's medical issue today is based on review of the patient's past medical history, review the patient's medication list, review the patient drug allergy list, history present illness and physical findings on examination. The workup in this patient includes urinalysis. No other radiographic or laboratory studies are necessary. Counseled pt/family regarding: lab results, diagnosis, need for follow-up Medical Desision Making - Independent Historian Additional History obtained from: Spouse - Diagnostic Testing Diagnostic test were ordered, analyzed, and reviewed by me: Yes - Risk of complications The pt has a mod risk of morbidity or mortality based on: Need for prescription drug management - Departure Departure Disposition: Home Clinical Impression: UTI (urinary tract infection) Condition: Stable Critical Care Time: No Referrals: ADRIANA PATRICIO, HOUSING OFFICER [Primary Care Provider] - Follow up/PCP as directed Additional Instructions: Drink plenty of clear liquids. May use Tylenol and ibuprofen for pain control if there are no contraindications to do so. Take your medications as presc ribed. Call your primary care physician later today to make arranges for follow-up appointment for further evaluation and management. Prescriptions: Ciprofloxacin [Cipro 500 MG] 500 mg PO BID #14 tablet
== END 2023-12-20 00:54 | disposition home or self-care (01) ==
LOC: ED 23:42
DX: N39.0 Urinary tract infection, site not specified (principal); R31.9 Hematuria, unspecified; R10.9 Unspecified abdominal pain; Z79.899 Other long term (current) drug therapy
CPT/HCPCS: 81001; 87086; 99283; A9270-GY

== ENCOUNTER 2024-05-14 14:21 | Emergency (ER) | payer MEDICARE ==
[2024-05-14 14:38] VITALS: PULSE 78; RESP 18; TEMP 97.7; O2SAT 95
[2024-05-14 14:44] LABS: Appearance Clear (Clear); Bacteria Rare /HPF (None Seen); Bilirubin Negative (Negative); Blood Negative (Negative); Epithelial Cells Few /HPF (None Seen); Glucose, Urine Negative (Negative); Ketones Negative (Negative); Leukocyte Esterase Trace (Negative); Nitrite Negative (Negative); Protein,Urine Dip Negative (Negative); RBC 0-2 /HPF (0-5); Urobilinogen 0.2 mg/dL (0.2)
--- NOTE | 2024-05-14 14:54 | ERPHSYRPT ---
- History of Present Illness Time Seen by Provider: 05/14/24 14:51 Historian: patient Exam Limitations: no limitations Patient Subjective Stated Complaint: C/O sudden onset of left sided abdominal pain around 1pm today. Pain has improved since that time but not resolved. No N/V. States she did start having some diarrhea around that same time. Triage Nursing Assessment: Patient ambulated back to ER. She is alert and oriented. Holding left side at times. No SOB. Skin tone normal. Prefers to sit on the side of the bed instead of ly down. Physician History: C/O sudden onset of left sided abdominal pain around 1pm today. Pain has improved since that time but not resolved. No N/V. States she did start having some diarrhea around that same time. Timing/Duration: today Activities at Onset: none Quality: cramping, fullness Abdominal Pain Onset Location: LLQ, flank Pain Radiation: LUQ Severity of Pain-Max: mild Severity of Pain-Current: moderate Modifying Factors: Improves With: nothing Associated Symptoms: denies symptoms Previous symptoms: no prior history Allergies/Adverse Reactions: azithromycin Allergy (Verified 05/14/24 14:33) codeine Allergy (Verified 05/14/24 14:27) erythromycin base Allergy (Verified 05/14/24 14:27) gluten Allergy (Verified 05/14/24 14:27) Penicillins Allergy (Verified 05/14/24 14:27) banana Adverse Reaction (Mild, Verified 05/14/24 14:27) Nausea Home Medications: PANTOPRAZOLE 40 mg Tablet [Protonix 40MG Tablet] 40 mg PO DAILY 12/12/14 [History] Calcium Carbonate/Vitamin D3 [Calcium 600-Vit D3 800 Tablet] 1 each PO DAILY 01/27/15 [History] Metoprolol Tartrate 25 mg [Lopressor 25MG Tab] 1.5 tab PO BID 07/04/15 [History] Atorvastatin Calcium [Lipitor] 20 mg PO DAILY 02/07/22 [History] Famotidine 40 mg PO HS 02/07/22 [History] Sertraline HCl [Zoloft] 60 mg PO HS 02/07/22 [History] Amlodipine Besylate 5 mg [Norvasc 5 mg] 2.5 mg PO DAILY 09/17/23 [History] Furosemide 40 mg [Lasix 40 MG] 40 mg PO DAILY PRN PRN 09/17/23 [History] Potassium Chloride 1 cap PO DAILY PRN PRN 09/17/23 [History] Clobetasol Propionate/Emoll [Clobetasol Emollient 0.05% Crm] 1 applic INTRAVAGIN DAILY 12/20/23 [History] Hx Tetanus, Diphtheria Vaccination/Date Given: Yes Hx Influenza Vaccination/Date Given: Yes Hx Pneumococcal Vaccination/Date Given: Yes Immunizations Up to Date: Yes Travel Risk - International Travel Have you traveled outside of the country in past 3 weeks: No - Emerging Infectious Disease Are you exhibiting symptoms associated with any current EIDs: Yes Symptoms: Abdominal Pain, Diarrhea - Review of Systems Constitutional: No Fever, No Chills Eyes: No Symptoms Ears, Nose, & Throat: No Symptoms Respiratory: No Cough, No Dyspnea Cardiac: No Chest Pain, No Edema, No Syncope Abdominal/Gastrointestinal: Abdominal Pain, No Nausea, No Vomiting, No Diarrhea Genitourinary Symptoms: No Dysuria Musculoskeletal: No Back Pain, No Neck Pain Skin: No Rash Neurological: No Dizziness, No Focal Weakness, No Sensory Changes Psychological: No Symptoms Endocrine: No Symptoms All Other Systems: Reviewed and Negative - Past Medical History Pertinent Past Medical History: Yes Neurological History: TIA ENT History: No Pertinent History Cardiac History: Arrhythmia, Other Respiratory History: No Pertinent History Endocrine Medical History: No Pertinent History Musculoskeletal History: No Pertinent History GI Medical History: GERD History: No Pertinent History Psycho-Social History: No Pertinent History Female Reproductive Disorders: No Pertinent History Other Medical History: liver ablasion - Past Surgical History Past Surgical History: Yes Neuro Surgical History: No Pertinent History Cardiac: Pacemaker Respiratory: No Pertinent History Gastrointestinal: Appendectomy, Hemorrhoidectomy, Hernia Repair Genitourinary: No Pertinent History Musculoskeletal: No Pertinent History Female Surgical History: Hysterectomy Other Surgical History: back surgery, ovarian cyst removal - Social History Smoking Status: Never smoker Exposure to second hand smoke: No Drug Use: none Patient Lives Alone: No - Social Determinants of Health Will the patient participate in the screening: Yes Do you worry about a steady place to live?: No Do you have any problems with any of the following?: No known problems In the past 12 months,have you had to go without utilities?: No Transportation Issues: No Has anyone in your support network made you feel unsafe?: No Have you or anyone in your house had to go without enough: No - Nursing Vital Signs Nursing Vital Signs: Initial Vital Signs Blood Pressure 143/101 05/14/24 14:31 Pain Scale Pain Intensity 5 - Physical Exam General Appearance: no apparent distress, alert Eye Exam: PERRL/EOMI, eyes nml inspection Ears, Nose, Throat Exam: normal ENT inspection, pharynx normal, moist mucous membranes Neck Exam: normal inspection, non-tender, supple, full range of motion Respiratory Exam: normal breath sounds, lungs clear, No respiratory distress Cardiovascular Exam: regular rate/rhythm, normal heart sounds Gastrointestinal/Abdomen Exam: soft, tenderness (LLQ), No mass, No guarding, No rebound, No hepatomegaly, No organomegaly, No splenomegaly Pelvic Exam: not done Rectal Exam: deferred Back Exam: normal inspection, normal range of motion, No CVA tenderness, No vertebral tenderness Extremity Exam: normal inspection, normal range of motion, pelvis stable Neurologic Exam: alert, oriented x 3, cooperative, normal mood/affect, nml cerebellar function, sensation nml, No motor deficits Skin Exam: normal color, warm, dry SpO2 Interpretation: normal SpO2: 95 O2 Delivery: Room Air - Course Nursing assessment & vital signs reviewed: Yes Ordered Tests: Active Orders 24 hr Category Date Time Status ABDOMEN AND PELVIS W CONTRAST [CT] Stat Exams 05/14/24 14:53 Completed AMYLASE Stat Lab 05/14/24 15:24 Completed CBC W DIFF Stat Lab 05/14/24 15:24 Completed CMP Stat Lab 05/14/24 15:24 Completed LIPASE Stat Lab 05/14/24 15:24 Completed UA W/RFX UR CULTURE Stat Lab 05/14/24 14:37 Completed Medication Summary Generic Name Dose Route Start Last Admin Trade Name Freq PRN Reason Stop Dose Admin Ceftriaxone Sodium 1 gm in 100 mls @ 200 mls/hr 05/14/24 16:56 05/14/24 17:39 Rocephin 1 Gm / 100 Ml Nacl IV 05/14/24 17:25 Infused STAT ONE Infusion Discontinued Medications Generic Name Dose Route Start Last Admin Trade Name Freq PRN Reason Stop Dose Admin Sodium Chloride 1,000 mls @ 999 mls/hr 05/14/24 14:44 05/14/24 16:16 Sodium Chloride 0.9% 1000 Ml IV 05/14/24 15:44 Infused .Q1H1M STA Infusion Sodium Chloride Confirm 05/14/24 15:12 Sodium Chloride 0.9% 1000 Ml Administered 05/14/24 15:13 Dose 1,000 mls @ ud .ROUTE .STK-MED ONE Ketorolac Tromethamine 30 mg 05/14/24 17:44 Ketorolac Tromethamine 30 Mg/Ml Inj IV 05/14/24 17:45 STAT ONE Ondansetron HCl 4 mg 05/14/24 14:44 05/14/24 15:13 Ondansetron Hcl 4 Mg/2 Ml Vial IV 05/14/24 14:45 4 mg STAT ONE Administration Ondansetron HCl Confirm 05/14/24 15:12 Ondansetron Hcl 4 Mg/2 Ml Vial Administered 05/14/24 15:13 Dose 4 mg .ROUTE .STK-MED ONE Tamsulosin HCl 0.4 mg 05/14/24 17:45 Tamsulosin Hcl 0.4 Mg Cap PO 05/14/24 17:46 DAILY STA Lab/Rad Data: Laboratory Result Diagrams 05/14/24 15:24 05/14/24 15:24 Laboratory Results 05/14/24 05/14/24 05/14/24 Range/Units 15:24 15:24 14:37 WBC 7.7 (3.98-10.04) x10^3/uL RBC 4.50 (3.93-5.22) x10^6/uL Hgb 13.8 (11.2-15.7) g/dL Hct 41.5 (34.1-44.9) % MCV 92.2 (79.4-94.8) fL MCH 30.7 (25.6-32.2) pg MCHC 33.3 (32.2-35.5) g/dL RDW 13.4 (11.7-14.4) % Plt Count 242 (182-369) x10^3/uL MPV 9.3 L (9.4-12.3) fL Gran % 74.4 H (34.0-71.1) % Immature Gran % (Auto) 0.8 H (0.001-0.429) % Nucleat RBC Rel Count 0.0 (0.00-0.2) % Eos # (Auto) 0.26 (0.04-0.36) x10^3/uL Immature Gran # (Auto) 0.06 H (0.001-0.031) x10^3u/L Absolute Lymphs (auto) 0.95 L (1.18-3.74) x10^3/uL Absolute Monos (auto) 0.63 (0.24-0.86) x10^3/uL Absolute Nucleated RBC 0.00 (0.00-0.012) x10^3u/L Lymphocytes % 12.3 L (19.3-51.7) % Monocytes % 8.2 (4.7-12.5) % Eosinophils % 3.4 (0.7-5.8) % Basophils % 0.9 (0.1-1.2) % Absolute Granulocytes 5.76 (1.56-6.13) x10^3/uL Basophils # 0.07 (0.01-0.08) x10^3/uL Sodium 140 (135-145) mmol/L Potassium 3.2 L (3.5-5.1) mmol/L Chloride 103 (98-107) mmol/L Carbon Dioxide 28 (22-30) mmol/L Anion Gap 12.2 (5-15) MEQ/L BUN 24 H (7-17) mg/dL Creatinine 1.14 H (0.52-1.04) mg/dL Estimated GFR 49.3 ML/MIN Glucose 106 (74-106) mg/dL Calcium 9.3 (8.4-10.2) mg/dL Total Bilirubin 0.30 (0.2-1.3) mg/dL AST 33 (14-36) U/L ALT 16 (0-35) U/L Alkaline Phosphatase 100 (38-126) U/L Serum Total Protein 7.7 (6.3-8.2) g/dL Albumin 4.4 (3.5-5.0) g/dL Amylase 54 (30-110) U/L Lipase 93 (23-300) U/L Urine Color Yellow (Yellow) Urine Appearance Clear (Clear) Urine pH 6.0 (4.6-8.0) Ur Specific [place] 1.010 (1.005-1.030) Urine Protein Negative (Negative) Urine Glucose (UA) Negative (Negative) mg/dL Urine Ketones Negative (Negative) Urine Blood Negative (Negative) Urine Nitrite Negative (Negative) Urine Bilirubin Negative (Negative) Urine Urobilinogen 0.2 (0.2) mg/dL Ur Leukocyte Esterase Trace A (Negative) U Hyaline Cast (Auto) 3-5 A (0-2) /LPF Urine Microscopic RBC 0-2 (0-5) /HPF Urine Microscopic WBC 3-5 (0-5) /HPF Ur Epithelial Cells Few (None Seen) /HPF Urine Bacteria Rare A (None Seen) /HPF Urine Culture Reflexed NO (NO) CLINICAL HISTORY: LLQ abdominal pain COMPARISON: None. TECHNIQUE: CT of the abdomen and pelvis was performed with contrast, with the following protocol: axial images with, and reconstructed coronal and sagittal images. One of the following dose reduction techniques was utilized for this exam: Automated exposure control, adjustment of the mA and/or kV according to patient size, and use of iterative reconstruction. 80 CC Isovue 370 was given as an IV contrast. FINDINGS: Abdomen: Coarse calcifications in the right pleurodiaphragmatic area. Liver: Normal in size, shape, and density. Multiple well-defined hypodense hepatic focal lesions are seen, largest in left lobe segment II measuring 13 mm, most likely simple cysts. Hepatic vasculature and biliary ducts are unremarkable. Gallbladder and Biliary System: The gallbladder is normal in size and shape. No wall thickening, pericholecystic fluid, or gallstones were identified. The common bile duct is normal in caliber without dilation. Pancreas: Pancreatic head, body, and tail are visualized and appear normal in size and density. No pancreatic masses or calcifications were noted. The pancreatic duct is not dilated. Spleen: Normal in size, shape, and density. No splenic lesions or masses were identified. Kidneys and Adrenal Glands: Left moderate back pressure changes with mildly to moderately dilated left ureter down to distal ureteric / uretrovesical junction measuring 4.5 mm with density of 329 HU. Another smaller proximal stone measuring 3.2 mm. Both kidneys are normal in size, shape, and position. Cortical thickness is within normal limits. Adrenal glands are unremarkable with no evidence of masses or hyperplasia. Pelvis: Urinary Bladder: No adequately filled hindering proper assessment No intraluminal lesions were identified. Uterus: Small with calcifications Ovaries: Not well visualized but no gross abnormalities were noted. Vagina: Normal in contour and wall thickness. Peritoneal and Retroperitoneal Structures: No free fluid or abnormal fluid collections were identified within the abdomen or pelvis. No lymphadenopathy was noted. Stomach: Sliding hiatus hernia with large size of the stomach seen in the chest cavity. Mild wall edema is noted. The appendix is not visualized however no fat stranding or collection is seen in the right iliac fossa. Bowel: Non-complicated sigmoid diverticulosis is noted No evidence of bowel obstruction or wall thickening. Colonic diverticulosis without CT evidence of acute diverticulitis. No evidence of bowel obstruction. Bones and Soft Tissues: Osteopenic texture of bones Scoliotic deformity of the spine, convex to the right side Spine degenerative changes are seen No fractures or abnormal masses were identified. IMPRESSION: page 2 of 3 1. Left lower ureteric two stones as described with left mild to moderate hydrouretronephrosis. 2. Multiple hepatic focal lesions are likely cystic. 3. Sliding hiatus hernia with gastric wall edema 4. Noncomplicated sigmoid colon diverticulosis. - Progress Progress: improved, pain not gone completely Counseled pt/family regarding: lab results, diagnosis, need for follow-up, rad results Medical Desision Making - Independent Historian Additional History obtained from: Spouse, Family - Diagnostic Testing Diagnostic test were ordered, analyzed, and reviewed by me: Yes Radiological Interpretation: Teleradiologist Report - Risk of complications The pt has a mod risk of morbidity or mortality based on: Need for prescription drug management - Departure Departure Disposition: Home Clinical Impression: Hepatic cyst, Ureteral stone with hydronephrosis Diverticulitis large intestine Qualifiers: Diverticulitis bleeding: without bleeding Diverticulitis complication: without perforation or abscess Qualified Code(s): K57.32 - Diverticulitis of large intestine without perforation or abscess without bleeding Condition: Stable Critical Care Time: No Referrals: ADRIANA PATRICIO NP [Primary Care Provider] - Follow up/PCP as directed Instructions: Diverticulitis, Kidney stones in adults Additional Instructions: You have a kidney stone which is passing through your left side of the ureter and it is at the end of the ureter so you are going to pass it into your bladder pretty soon. You also have a diverticulitis which is the infection of your lower part of the large colon which is in very early stage. Take your antibio tic and Flomax to help you pass the stone as well as to help treating your diverticulitis. Please strain your urine for stone and bring the stone back if you can strain it to the lab for further evaluation. Follow-up with your primary care physician in next 2 to 3 days. If your symptoms recur you can come back to emergency room Discharge/Care Plan BRANDO COLLINS was seen on 05/14/24 in the Emergency Room. The patient was counseled regarding Diagnosis,Lab results, Imaging studies, need for follow up and when to return to the Emergency Room. Prescriptions given: Discharge Note I have spoken with the patient and/or caregivers. I have explained the patient's condition, diagnosis and treatment plan based on the information available to me at this time. I have answered the patient's and/or caregiver's questions and addressed any concerns. The patient and/or caregivers have as good understanding of the patient's diagnosis, condition and treatment plan as can be expected at this point. The vital signs have been stable. The patient's condition is stable and appropriate for discharge from the emergency department. The patient will pursue further outpatient evaluation with the primary care physician or other designated or consulting physician as outlined in the discharge instructions. The patient and/or caregivers are agreeable to this plan of care and follow-up instructions have been explained in detail. The patient and/or caregivers have received these instruction. The patient/and or caregivers are aware that any significant change in condition or worsening of symptoms should prompt an immediate return to this or the closest emergency department or call 911. BRANDO COLLINS was seen on 05/14/24 n the Emergency Room. At that time you were treated for an emergent condition, during your visit Laboratory, Radiology and/or other procedures may have been ordered. It is very important that you follow-up with your Primary Care Physician ADRIANA PATRICIO within the next 24-48 hours to review your Emergency Room visit and the final results of testing that was ordered. Some test results such as Urine Cultures, Blood Cultures, and other cultures if ordered will not be finalized for 24-48 hours. If you do not have a Primary Care Provider please call the medical records department at [phone] ext [phone] to obtain a copy of your results or you may sign into our patient portal to obtain these results by visiting us @ [email or web address] and completing the following steps: 1. Click on the Patient Portal link 2. Click the Patient Self Enrollment Link to complete the enrollment form and entering your 3. Once the enrollment form is completed you will receive an email with a temporary ID and password at the email address you provided. 4. Next choose a user name and password. Your user name must be at least 4 c haracters long and your password must be at least 4 characters long. 5. Choose a security question from the list and provide your answer to the question. If you already have signed into the Health Portal you may access your Health Care Information 04/12 by the following steps: 1. Login to our website @ [email or web address] 2. Enter your original user name and password. FAQS The [facility] Health Portal is an online tool that contains your Lab Results, Radiology Reports, Visit History, Discharge Instructions and Health Summary Lab and Radiology Results will not be available for 72 hours on the portal. The Portal is a secure site, passwords are encryted and URLs are re-written so they cannot be copied and pasted. You and authorized family members are the only ones who can access your Portal. Also there is a timeout feature that protects your information if you leave the Portal page open. If you have technical difficulty please use the Contact Us link on the page this will allow you to submit any questions you have regarding the Portal or you may contact the Medical Record Department at [phone]. Prescriptions: Smz/Tmp Ds Tablet [Bactrim Ds Tablet] 1 udtab PO BID #20 tablet Tamsulosin HCl 0.4 mg [Flomax 0.4 MG] 0.4 mg PO DAILY #30 cap Ketorolac Trometh 10 mg Tab [TORAdol 10 MG TABLET] 10 mg PO QID #20 tablet
[2024-05-14] MEDS ORDERED: Sodium Chloride 0.9% 1000 ML 1,000 ML ONE (15:12)
[2024-05-14] MEDS ORDERED: Zofran 4 MG/2 ML VIAL ONE (15:12)
[2024-05-14] MEDS: Zofran 4 MG/2 ML VIAL IV ONE (15:13)
[2024-05-14] MEDS: Sodium Chloride 0.9% 1000 ML 1,000 ML IV STA (15:13)
[2024-05-14 15:24] LABS: Absolute Neutrophil Ct (ANC) 5.76 x10^3/uL (1.56-6.13); BASOPHIL % 0.9 % (0.1-1.2); Basophil (Absolute #) 0.07 x10^3/uL (0.01-0.08); Eosinophil % 3.4 % (0.7-5.8); Eosinophil (Absolute #) 0.26 x10^3/uL (0.04-0.36); Hematocrit 41.5 % (34.1-44.9); Hemoglobin 13.8 g/dL (11.2-15.7); IMMATURE GRAN # 0.06 x10^3u/L (0.001-0.031); IMMATURE GRAN % 0.8 % (0.001-0.429); Lymphocyte (Absolute #) 0.95 x10^3/uL (1.18-3.74); Lymphocytes % 12.3 % (19.3-51.7); Mean Cell Volume 92.2 fL (79.4-94.8); Mean Corpuscular Hemoglobin 30.7 pg (25.6-32.2); Mean Corpuscular Hgb Concent. 33.3 g/dL (32.2-35.5); Mean Platelet Volume 9.3 fL (9.4-12.3); Monocyte (Absolute #) 0.63 x10^3/uL (0.24-0.86); Monocytes % 8.2 % (4.7-12.5); Neutrophil % 74.4 % (34.0-71.1); Platelet Count 242 x10^3/uL (182-369); Red Cell Distribution Width 13.4 % (11.7-14.4); White Blood Count 7.7 x10^3/uL (3.98-10.04)
[2024-05-14 15:37] LABS: ALBUMIN 4.4 g/dL (3.5-5.0); ANION GAP 12.2 MEQ/L (5-15); BILIRUBIN,TOTAL 0.3 mg/dL (0.2-1.3); Calcium 9.3 mg/dL (8.4-10.2); Creatinine 1 1.14 mg/dL (0.52-1.04); EST GLOMERULAR FILTRATION RATE 49.3 ML/MIN; Potassium 3.2 mmol/L (3.5-5.1); Total Protein 7.7 g/dL (6.3-8.2)
[2024-05-14] MEDS ORDERED: ROCEPHIN 1 GM / 100 ML NaCl 1 GM/100 ML IVPB IV ONE (17:08)
[2024-05-14] MEDS: ROCEPHIN 1 GM / 100 ML NaCl 1 GM/100 ML IVPB IV ONE (17:09)
--- NOTE | 2024-05-14 17:36 | XRAY ---
CLINICAL HISTORY: LLQ abdominal pain COMPARISON: None. TECHNIQUE: CT of the abdomen and pelvis was performed with contrast, with the following protocol: axial images with, and reconstructed coronal and sagittal images. One of the following dose reduction techniques was utilized for this exam: Automated exposure control, adjustment of the mA and/or kV according to patient size, and use of iterative reconstruction. 80 CC Isovue 370 was given as an IV contrast. FINDINGS: Abdomen: Coarse calcifications in the right pleurodiaphragmatic area. Liver: Normal in size, shape, and density. Multiple well-defined hypodense hepatic focal lesions are seen, largest in left lobe segment II measuring 13 mm, most likely simple cysts. Hepatic vasculature and biliary ducts are unremarkable. Gallbladder and Biliary System: The gallbladder is normal in size and shape. No wall thickening, pericholecystic fluid, or gallstones were identified. The common bile duct is normal in caliber without dilation. Pancreas: Pancreatic head, body, and tail are visualized and appear normal in size and density. No pancreatic masses or calcifications were noted. The pancreatic duct is not dilated. Spleen: Normal in size, shape, and density. No splenic lesions or masses were identified. Kidneys and Adrenal Glands: Left moderate back pressure changes with mildly to moderately dilated left ureter down to distal ureteric / uretrovesical junction measuring 4.5 mm with density of 329 HU. Another smaller proximal stone measuring 3.2 mm. Both kidneys are normal in size, shape, and position. Cortical thickness is within normal limits. Adrenal glands are unremarkable with no evidence of masses or hyperplasia. Pelvis: Urinary Bladder: No adequately filled hindering proper assessment No intraluminal lesions were identified. Uterus: Small with calcifications Ovaries: Not well visualized but no gross abnormalities were noted. Vagina: Normal in contour and wall thickness. Peritoneal and Retroperitoneal Structures: No free fluid or abnormal fluid collections were identified within the abdomen or pelvis. No lymphadenopathy was noted. Stomach: Sliding hiatus hernia with large size of the stomach seen in the chest cavity. Mild wall edema is noted. The appendix is not visualized however no fat stranding or collection is seen in the right iliac fossa. Bowel: Non-complicated sigmoid diverticulosis is noted No evidence of bowel obstruction or wall thickening. Colonic diverticulosis without CT evidence of acute diverticulitis. No evidence of bowel obstruction. Bones and Soft Tissues: Osteopenic texture of bones Scoliotic deformity of the spine, convex to the right side Spine degenerative changes are seen No fractures or abnormal masses were identified. IMPRESSION: 1. Left lower ureteric two stones as described with left mild to moderate hydrouretronephrosis. 2. Multiple hepatic focal lesions are likely cystic. 3. Sliding hiatus hernia with gastric wall edema 4. Noncomplicated sigmoid colon diverticulosis. Electronically Signed by: Yenny Rodriguez MD. (05/14/2024 17:31:46 EST)
[2024-05-14 17:47] VITALS: BP 109/71
[2024-05-14] MEDS ORDERED: Flomax 0.4 MG ONE (17:53)
[2024-05-14] MEDS ORDERED: TORAdol 30 mg Injection ONE (17:53)
[2024-05-14] MEDS: TORAdol 30 mg Injection IV ONE (17:56)
[2024-05-14] MEDS: Flomax 0.4 MG PO STA (17:56)
== END 2024-05-14 18:18 | disposition home or self-care (01) ==
LOC: ED 14:21
DX: K57.32 Diverticulitis of large intestine without perforation or abscess without bleeding (principal); K76.89 Other specified diseases of liver; N13.2 Hydronephrosis with renal and ureteral calculous obstruction; R10.9 Unspecified abdominal pain; Z79.899 Other long term (current) drug therapy
CPT/HCPCS: 36415; 74177; 80053; 81001; 82150; 83690; 85025; 96374; 96375; 99284; 99285; J0696; J1885; J2405; A9270-GY

== ENCOUNTER 2024-05-17 05:55 | Emergency (ER) | payer MEDICARE ==
--- NOTE | 2024-05-17 06:18 | ERPHSYRPT ---
- History of Present Illness Source: patient, family Exam Limitations: no limitations Severity: moderate Associated Symptoms: nausea, vomiting, abdominal pain, chest pain, loss of appetite, weakness, other (Bloody diarrheal stool), No shortness of breath Hx Tetanus, Diphtheria Vaccination/Date Given: Yes Hx Influenza Vaccination/Date Given: Yes Hx Pneumococcal Vaccination/Date Given: Yes <ALEXANDRA WILL - Last Filed: 05/17/24 06:49> <JULES MOORE - Last Filed: 05/17/24 10:17> - History of Present Illness Time Seen by Provider: 05/17/24 06:18 Physician History: This is a 78-year-old white female patient brought to the emergency department by private vehicle accompanied by her spouse and is a patient of nurse practitioner Xiao with the complaint of nausea, vomiting, abdominal pain and b loody diarrhea stools. She has associated weakness. He did have mild chest pressure during the episodes of vomiting and diarrhea stools. She is not having chest pain at this time. Patient is not on any anticoagulation therapy. She does not have any bleeding or clotting disorders. Patient has a pacemaker in place. She has had a hysterectomy in the past and a cholecystectomy. Patient has a history of hyperlipidemia, hypertension, gastroesophageal reflux disease and an arrhythmia. (ALEXANDRA WILL) Allergies/Adverse Reactions: azithromycin Allergy (Verified 05/17/24 06:19) codeine Allergy (Verified 05/17/24 06:19) erythromycin base Allergy (Verified 05/17/24 06:19) gluten Allergy (Verified 05/17/24 06:19) Penicillins Allergy (Verified 05/17/24 06:19) banana Adverse Reaction (Mild, Verified 05/17/24 06:19) Nausea Home Medications: PANTOPRAZOLE 40 mg Tablet [Protonix 40MG Tablet] 40 mg PO DAILY 12/12/14 [History] Calcium Carbonate/Vitamin D3 [Calcium 600-Vit D3 800 Tablet] 1 each PO DAILY [History] Metoprolol Tartrate 25 mg [Lopressor 25MG Tab] 1.5 tab PO BID 07/04/15 [History] Atorvastatin Calcium [Lipitor] 20 mg PO DAILY 02/07/22 [History] Famotidine 40 mg PO HS 02/07/22 [History] Sertraline HCl [Zoloft] 60 mg PO HS 02/07/22 [History] Amlodipine Besylate 5 mg [Norvasc 5 mg] 2.5 mg PO DAILY 09/17/23 [History] Furosemide 40 mg [Lasix 40 MG] 40 mg PO DAILY PRN PRN 09/17/23 [History] Potassium Chloride 1 cap PO DAILY PRN PRN 09/17/23 [History] Clobetasol Propionate/Emoll [Clobetasol Emollient 0.05% Crm] 1 applic INTRAVAGIN DAILY 12/20/23 [History] Travel Risk - International Travel Have you traveled outside of the country in past 3 weeks: No - Emerging Infectious Disease Are you exhibiting symptoms associated with any current EIDs: Yes Symptoms: Abdominal Pain, Diarrhea <ALEXANDRA WILL - Last Filed: 05/17/24 06:49> - Review of Systems Constitutional: Weakness Eyes: No Symptoms Ears, Nose, & Throat: No Symptoms Respiratory: No Symptoms Cardiac: Chest Pain Abdominal/Gastrointestinal: Abdominal Pain, Nausea, Vomiting, Diarrhea, Hematochezia, Appetite Changes Genitourinary Symptoms: No Symptoms Musculoskeletal: No Symptoms Skin: No Symptoms Neurological: No Symptoms Psychological: No Symptoms Endocrine: No Symptoms Hematologic/Lymphatic: No Symptoms Immunological/Allergic: No Symptoms All Other Systems: Reviewed and Negative <ALEXANDRA WILL - Last Filed: 05/17/24 06:49> - Past Medical History Pertinent Past Medical History: Yes Neurological History: TIA ENT History: No Pertinent History Cardiac History: Arrhythmia, Other Respiratory History: No Pertinent History Endocrine Medical History: No Pertinent History Musculoskeletal History: No Pertinent History GI Medical History: GERD History: No Pertinent History Psycho-Social History: No Pertinent History Female Reproductive Disorders: No Pertinent History Other Medical History: liver ablasion - Past Surgical History Past Surgical History: Yes Neuro Surgical History: No Pertinent History Cardiac: Pacemaker Respiratory: No Pertinent History Gastrointestinal: Appendectomy, Hemorrhoidectomy, Hernia Repair Genitourinary: No Pertinent History Musculoskeletal: No Pertinent History Female Surgical History: Hysterectomy Other Surgical History: back surgery, ovarian cyst removal - Social History Smoking Status: Never smoker Exposure to second hand smoke: No Drug Use: none Patient Lives Alone: No - Social Determinants of Health Will the patient participate in the screening: Yes Do you worry about a steady place to live?: No In the past 12 months,have you had to go without utilities?: No Transportation Issues: No Has anyone in your support network made you feel unsafe?: No Have you or anyone in your house had to go without enough: No <ALEXANDRA WILL - Last Filed: 05/17/24 06:49> - Physical Exam General Appearance: no apparent distress, alert, anxiety, obese Eye Exam: PERRL/EOMI, eyes nml inspection Ears, Nose, Throat Exam: normal ENT inspection, moist mucous membranes Neck Exam: normal inspection, non-tender, supple, full range of motion Respiratory Exam: normal breath sounds, lungs clear, airway intact, No chest tenderness, No respiratory distress Cardiovascular Exam: regular rate/rhythm, normal heart sounds, normal peripheral pulses Gastrointestinal/Abdomen Exam: soft, normal bowel sounds, tenderness, guarding Pelvic Exam: not done Rectal Exam: not done Back Exam: normal inspection, normal range of motion, No CVA tenderness, No vertebral tenderness Extremity Exam: normal inspection, normal range of motion, pelvis stable Neurologic Exam: alert, oriented x 3, cooperative, 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 as tested, sensation nml Skin Exam: normal color, warm, dry Lymphatic Exam: No adenopathy SpO2 Interpretation: normal SpO2: 97 O2 Delivery: Room Air <ALEXANDRA WILL - Last Filed: 05/17/24 06:49> - Nursing Vital Signs Nursing Vital Signs: Initial Vital Signs Pulse Rate 68 05/17/24 06:12 Respiratory Rate 16 05/17/24 06:12 Blood Pressure 145/80 05/17/24 06:12 O2 Sat by Pulse Oximetry 97 05/17/24 06:12 Pain Scale Pain Intensity 2 - Course Nursing assessment & vital signs reviewed: Yes EKG Interpreted by Me: Non-specific ST Changes Rhythm Strip: Normal Sinus Rhythm <JULES MOORE - Last Filed: 05/17/24 10:17> Ordered Tests: Active Orders 24 hr Category Date Time Status EKG-ER Only STAT Care 05/17/24 06:19 Active IV Insertion STAT Care 05/17/24 06:19 Active ABDOMEN AND PELVIS W/0 CONTRAS [CT] Stat Exams 05/17/24 06:35 Completed AMYLASE Stat Lab 05/17/24 06:50 Completed BLOOD CULTURE Stat Lab 05/17/24 08:01 Received CBC W DIFF Stat Lab 05/17/24 06:50 Completed CMP Stat Lab 05/17/24 06:50 Completed CULTURE,URINE Stat Lab 05/17/24 06:58 Received LIPASE Stat Lab 05/17/24 06:50 Completed Lactic Acid Stat Lab 05/17/24 06:19 Completed Lactic Acid Stat Lab 05/17/24 08:47 Received MONO SCREEN Stat Lab 05/17/24 06:50 Completed TROPONIN Q4H Lab 05/17/24 06:50 Completed TROPONIN Q4H Lab 05/17/24 10:30 Ordered TROPONIN Q4H Lab 05/17/24 14:30 Ordered UA W/RFX UR CULTURE Stat Lab 05/17/24 06:58 Completed Medication Summary Discontinued Medications Generic Name Dose Route Start Last Admin Trade Name Freq PRN Reason Stop Dose Admin Sodium Chloride 1,000 mls @ 999 mls/hr 05/17/24 06:19 05/17/24 06:46 Sodium Chloride 0.9% 1000 Ml IV 05/17/24 07:19 999 mls/hr .Q1H1M STA Administration Sodium Chloride Confirm 05/17/24 06:45 Sodium Chloride 0.9% 1000 Ml Administered 05/17/24 06:46 Dose 1,000 mls @ ud .ROUTE .STK-MED ONE Ondansetron HCl 4 mg 05/17/24 06:19 05/17/24 06:46 Ondansetron Hcl 4 Mg/2 Ml Vial IV 05/17/24 06:20 4 mg STAT ONE Administration Ondansetron HCl Confirm 05/17/24 06:44 Ondansetron Hcl 4 Mg/2 Ml Vial Administered 05/17/24 06:45 Dose 4 mg .ROUTE .STK-MED ONE Pantoprazole Sodium 40 mg 05/17/24 06:19 05/17/24 06:46 Pantoprazole 40 Mg Vial IV 05/17/24 06:20 40 mg STAT ONE Administration Pantoprazole Sodium Confirm 05/17/24 06:45 Pantoprazole 40 Mg Vial Administered 05/17/24 06:46 Dose 40 mg IV .STK-MED ONE Lab/Rad Data: Laboratory Result Diagrams 05/17/24 06:50 05/17/24 06:50 Laboratory Results 05/17/24 05/17/24 05/17/24 Range/Units 06:58 06:50 06:50 WBC (3.98-10.04) x10^3/uL RBC (3.93-5.22) x10^6/uL Hgb (11.2-15.7) g/dL Hct (34.1-44.9) % MCV (79.4-94.8) fL MCH (25.6-32.2) pg MCHC (32.2-35.5) g/dL RDW (11.7-14.4) % Plt Count (182-369) x10^3/uL MPV (9.4-12.3) fL Gran % (34.0-71.1) % Immature Gran % (Auto) (0.001-0.429) % Nucleat RBC Rel Count (0.00-0.2) % Eos # (Auto) (0.04-0.36) x10^3/uL Immature Gran # (Auto) (0.001-0.031) x10^3u/L Absolute Lymphs (auto) (1.18-3.74) x10^3/uL Absolute Monos (auto) (0.24-0.86) x10^3/uL Absolute Nucleated RBC (0.00-0.012) x10^3u/L Lymphocytes % (19.3-51.7) % Monocytes % (4.7-12.5) % Eosinophils % (0.7-5.8) % Basophils % (0.1-1.2) % Absolute Granulocytes (1.56-6.13) x10^3/uL Basophils # (0.01-0.08) x10^3/uL Sodium (135-145) mmol/L Potassium (3.5-5.1) mmol/L Chloride (98-107) mmol/L Carbon Dioxide (22-30) mmol/L Anion Gap (5-15) MEQ/L BUN (7-17) mg/dL Creatinine (0.52-1.04) mg/dL Estimated GFR ML/MIN Glucose (74-106) mg/dL Lactic Acid (0.4-2.0) Calcium (8.4-10.2) mg/dL Total Bilirubin (0.2-1.3) mg/dL AST (14-36) U/L ALT (0-35) U/L Alkaline Phosphatase (38-126) U/L Troponin I < 0.012 (0.000-0.033) ng/mL Serum Total Protein (6.3-8.2) g/dL Albumin (3.5-5.0) g/dL Amylase (30-110) U/L Lipase (23-300) U/L Urine Color Yellow (Yellow) Urine Appearance Clear (Clear) Urine pH 6.0 (4.6-8.0) Ur Specific [place] 1.015 (1.005-1.030) Urine Protein Negative (Negative) Urine Glucose (UA) Negative (Negative) mg/dL Urine Ketones Negative (Negative) Urine Blood Moderate A (Negative) Urine Nitrite Negative (Negative) Urine Bilirubin Negative (Negative) Urine Urobilinogen 0.2 (0.2) mg/dL Ur Leukocyte Esterase Trace A (Negative) U Hyaline Cast (Auto) NONE SEEN (0-2) /LPF Urine Microscopic RBC 51-100 A (0-5) /HPF Urine Microscopic WBC 6-10 A (0-5) /HPF Ur Epithelial Cells Rare (None Seen) /HPF Urine Bacteria None Seen (None Seen) /HPF Urine Culture Reflexed YES (NO) Monoscreen NEGATIVE (NEGATIVE) 05/17/24 05/17/24 05/17/24 Range/Units 06:50 06:50 06:19 WBC 5.9 (3.98-10.04) x10^3/uL RBC 4.09 (3.93-5.22) x10^6/uL Hgb 12.8 (11.2-15.7) g/dL Hct 37.2 (34.1-44.9) % MCV 91.0 (79.4-94.8) fL MCH 31.3 (25.6-32.2) pg MCHC 34.4 (32.2-35.5) g/dL RDW 13.8 (11.7-14.4) % Plt Count 236 (182-369) x10^3/uL MPV 10.0 (9.4-12.3) fL Gran % 64.4 (34.0-71.1) % Immature Gran % (Auto) 0.3 (0.001-0.429) % Nucleat RBC Rel Count 0.0 (0.00-0.2) % Eos # (Auto) 0.25 (0.04-0.36) x10^3/uL Immature Gran # (Auto) 0.02 (0.001-0.031) x10^3u/L Absolute Lymphs (auto) 1.32 (1.18-3.74) x10^3/uL Absolute Monos (auto) 0.47 (0.24-0.86) x10^3/uL Absolute Nucleated RBC 0.00 (0.00-0.012) x10^3u/L Lymphocytes % 22.3 (19.3-51.7) % Monocytes % 8.0 (4.7-12.5) % Eosinophils % 4.2 (0.7-5.8) % Basophils % 0.8 (0.1-1.2) % Absolute Granulocytes 3.80 (1.56-6.13) x10^3/uL Basophils # 0.05 (0.01-0.08) x10^3/uL Sodium 138 (135-145) mmol/L Potassium 3.6 (3.5-5.1) mmol/L Chloride 104 (98-107) mmol/L Carbon Dioxide 25 (22-30) mmol/L Anion Gap 12.4 (5-15) MEQ/L BUN 23 H (7-17) mg/dL Creatinine 1.27 H (0.52-1.04) mg/dL Estimated GFR 43.3 ML/MIN Glucose 112 H (74-106) mg/dL Lactic Acid 2.2 H (0.4-2.0) Calcium 9.3 (8.4-10.2) mg/dL Total Bilirubin 0.30 (0.2-1.3) mg/dL AST 39 H (14-36) U/L ALT 16 (0-35) U/L Alkaline Phosphatase 94 (38-126) U/L Troponin I (0.000-0.033) ng/mL Serum Total Protein 7.1 (6.3-8.2) g/dL Albumin 4.1 (3.5-5.0) g/dL Amylase 65 (30-110) U/L Lipase 71 (23-300) U/L Urine Color (Yellow) Urine Appearance (Clear) Urine pH (4.6-8.0) Ur Specific [place] (1.005-1.030) Urine Protein (Negative) Urine Glucose (UA) (Negative) mg/dL Urine Ketones (Negative) Urine Blood (Negative) Urine Nitrite (Negative) Urine Bilirubin (Negative) Urine Urobilinogen (0.2) mg/dL Ur Leukocyte Esterase (Negative) U Hyaline Cast (Auto) (0-2) /LPF Urine Microscopic RBC (0-5) /HPF Urine Microscopic WBC (0-5) /HPF Ur Epithelial Cells (None Seen) /HPF Urine Bacteria (None Seen) /HPF Urine Culture Reflexed (NO) Monoscreen (NEGATIVE) CT/ABDOMEN AND PELVIS W/0 CONTRAS CLINICAL HISTORY: Bloody diarrhea COMPARISON: 05/14/2024. TECHNIQUE: Non-contrast CT of the abdomen and pelvis was performed, with the following protocol: axial images, and reconstructed coronal and sagittal images. One of the following dose reduction techniques was utilized for this exam: Automated exposure control, adjustment of the mA and/or kV according to patient size, and use of iterative reconstruction. FINDINGS: Abdomen: Liver: Normal in size, shape, and density. A few well-defined hypodense hepatic focal lesions are seen, the largest in left lobe segment II measuring 1.2cm, most likely simple cysts. Gallbladder and Biliary System: The gallbladder is normal in size and shape. No wall thickening, pericholecystic fluid, or gallstones were identified. Pancreas: Pancreatic head, body, and tail are visualized and appear normal in size and density. No pancreatic masses or calcifications were noted. Spleen: Normal in size, shape, and density. No splenic lesions or masses were identified. Kidneys and Adrenal Glands: Redemonstration of a 4 mm calculus in the left ureter orifice and another 4mm calculus in the left distal ureter, cause mild left hydronephrosis. Both kidneys are normal in size, shape, and position. Cortical thickness is within normal limits. Adrenal glands are unremarkable. Pelvis: Urinary Bladder: No adequately filled hindering proper assessment No intraluminal lesions were identified. ' Uterus: Small with calcifications Ovaries: Not well visualized but no gross abnormalities were noted. Vagina: Normal in contour and wall thickness. Peritoneal and Retroperitoneal Structures: No free fluid or abnormal fluid collections were identified within the abdomen or pelvis. No lymphadenopathy was noted. Stomach: Sliding hiatus hernia with a large size of the stomach seen in the chest cavity. Bowel: Non-complicated sigmoid diverticulosis is noted No evidence of bowel obstruction or wall thickening. No evidence of bowel obstruction. Bones and Soft Tissues: Scoliotic deformity of the spine, convex to the right side Spine degenerative changes are seen No fractures or abnormal masses were identified. IMPRESSION: 1. No interval change in comparison with CT on 05/14/2024. 2. Redemonstration of a 4 mm calculus in the left ureter orifice and another 4mm calculus in the left distal ureter, cause mild left hydronephrosis. 3. Sliding hiatus hernia with a large size of the stomach seen in the chest cavity. 4. Non-complicated sigmoid diverticulosis is noted. (JULES MOORE) <ALEXANDRA WILL - Last Filed: 05/17/24 06:49> - Progress Progress: unchanged Discussed with DrRod: Other (Dr Hernández (urology) service) at [facility]. He will see Patient once She will get transferred.) Counseled pt/family regarding: lab results, diagnosis, need for follow-up, rad results <JULES MOORE - Last Filed: 05/17/24 10:17> - Progress Progress Note: 05/17/24 06:53 My medical decision making and the assignment of moderate complexity to this patient's medical issue today is based on review of the patient's past medical history, review of the patient's medication list, reviewed patient drug allergy list, history present illness and physical findings on examination. The workup today includes placement of an intravenous line, infusion of crystalloid solution, CBC, CMP, troponin level, twelve-lead EKG, lactic acid level, urinalysis, viral swabs, monotest, CT scan of the abdomen pelvis without contrast. Differential diagnosis includes but is not limited to viral illness, acute intra-abdominal/pelvic abnormality, diverticulitis, colitis, anemia I am transferring care of this patient to Dr. Moore at shift change. He will follow-up on workup results and make final disposition. (ALEXANDRA WILL) 05/17/24 08:44 [facility] was called for transfer. They denied patient because They don`t have inpatient urology service. [facility] in [place] contacted. They will be able to 05/17/24 10:15 At [facility] patient is in waiting list so we tried at [facility]. I talked to the urology service and they advised patient to be transferred to emergency department at [facility] [place] [place] so that patient's urgent situation which is bloody diarrhea can be taken care of with the GI service there in the emergency department and they will see the patient's there. Patient will be transferred via [facility] ambulance to [facility] emergency department. (JULES MOORE) - Departure Departure Disposition: Observation Critical Care Time: No <ALEXANDRA WILL - Last Filed: 05/17/24 06:49> - Departure Departure Disposition: Transfer ([facility]) Critical Care Time: No <JULES MOORE - Last Filed: 05/17/24 10:17> - Departure Clinical Impression: Bloody diarrhea, Viral syndrome, Chest tightness, Left nephrolithiasis, Ureteral stone with hydronephrosis, Sigmoid diverticulitis Condition: Stable Referrals: ADRIANA PATRICIO, [employer] [Primary Care Provider] - Follow up/PCP as directed Instructions: Gastrointestinal Bleeding (DC)
[2024-05-17] MEDS ORDERED: Zofran 4 MG/2 ML VIAL ONE (06:44)
[2024-05-17] MEDS ORDERED: PROTONIX 40 MG IV IV ONE (06:45)
[2024-05-17] MEDS ORDERED: Sodium Chloride 0.9% 1000 ML 1,000 ML ONE (06:45)
[2024-05-17] MEDS: Sodium Chloride 0.9% 1000 ML 1,000 ML IV STA (06:46)
[2024-05-17] MEDS: Zofran 4 MG/2 ML VIAL IV ONE (06:46)
[2024-05-17] MEDS: PROTONIX 40 MG IV IV ONE (06:46)
[2024-05-17 07:10] LABS: BASOPHIL % 0.8 % (0.1-1.2); Basophil (Absolute #) 0.05 x10^3/uL (0.01-0.08); Eosinophil % 4.2 % (0.7-5.8); Eosinophil (Absolute #) 0.25 x10^3/uL (0.04-0.36); Hematocrit 37.2 % (34.1-44.9); Hemoglobin 12.8 g/dL (11.2-15.7); IMMATURE GRAN # 0.02 x10^3u/L (0.001-0.031); IMMATURE GRAN % 0.3 % (0.001-0.429); Lymphocyte (Absolute #) 1.32 x10^3/uL (1.18-3.74); Lymphocytes % 22.3 % (19.3-51.7); Mean Corpuscular Hemoglobin 31.3 pg (25.6-32.2); Mean Corpuscular Hgb Concent. 34.4 g/dL (32.2-35.5); Monocyte (Absolute #) 0.47 x10^3/uL (0.24-0.86); Neutrophil % 64.4 % (34.0-71.1); Platelet Count 236 x10^3/uL (182-369); Red Blood Count 4.09 x10^6/uL (3.93-5.22); Red Cell Distribution Width 13.8 % (11.7-14.4); White Blood Count 5.9 x10^3/uL (3.98-10.04)
[2024-05-17 07:21] LABS: Appearance Clear (Clear); Bacteria None Seen /HPF (None Seen); Bilirubin Negative (Negative); Blood Moderate (Negative); Epithelial Cells Rare /HPF (None Seen); Glucose, Urine Negative (Negative); Hyaline Casts NONE SEEN /LPF (0-2); Ketones Negative (Negative); Leukocyte Esterase Trace (Negative); Nitrite Negative (Negative); Protein,Urine Dip Negative (Negative); RBC 51-100 /HPF (0-5); Specific Gravity 1.015 (1.005-1.030); Urobilinogen 0.2 mg/dL (0.2)
[2024-05-17 07:24] LABS: ALBUMIN 4.1 g/dL (3.5-5.0); ANION GAP 12.4 MEQ/L (5-15); BILIRUBIN,TOTAL 0.3 mg/dL (0.2-1.3); Calcium 9.3 mg/dL (8.4-10.2); Creatinine 1 1.27 mg/dL (0.52-1.04); EST GLOMERULAR FILTRATION RATE 43.3 ML/MIN; Potassium 3.6 mmol/L (3.5-5.1); Total Protein 7.1 g/dL (6.3-8.2)
--- NOTE | 2024-05-17 08:09 | XRAY ---
CLINICAL HISTORY: Bloody diarrhea COMPARISON: 05/14/2024. TECHNIQUE: Non-contrast CT of the abdomen and pelvis was performed, with the following protocol: axial images, and reconstructed coronal and sagittal images. One of the following dose reduction techniques was utilized for this exam: Automated exposure control, adjustment of the mA and/or kV according to patient size, and use of iterative reconstruction. FINDINGS: Abdomen: Liver: Normal in size, shape, and density. A few well-defined hypodense hepatic focal lesions are seen, the largest in left lobe segment II measuring 1.2cm, most likely simple cysts. Gallbladder and Biliary System: The gallbladder is normal in size and shape. No wall thickening, pericholecystic fluid, or gallstones were identified. Pancreas: Pancreatic head, body, and tail are visualized and appear normal in size and density. No pancreatic masses or calcifications were noted. Spleen: Normal in size, shape, and density. No splenic lesions or masses were identified. Kidneys and Adrenal Glands: Redemonstration of a 4 mm calculus in the left ureter orifice and another 4mm calculus in the left distal ureter, cause mild left hydronephrosis. Both kidneys are normal in size, shape, and position. Cortical thickness is within normal limits. Adrenal glands are unremarkable. Pelvis: Urinary Bladder: No adequately filled hindering proper assessment No intraluminal lesions were identified. ' Uterus: Small with calcifications Ovaries: Not well visualized but no gross abnormalities were noted. Vagina: Normal in contour and wall thickness. Peritoneal and Retroperitoneal Structures: No free fluid or abnormal fluid collections were identified within the abdomen or pelvis. No lymphadenopathy was noted. Stomach: Sliding hiatus hernia with a large size of the stomach seen in the chest cavity. Bowel: Non-complicated sigmoid diverticulosis is noted No evidence of bowel obstruction or wall thickening. No evidence of bowel obstruction. Bones and Soft Tissues: Scoliotic deformity of the spine, convex to the right side Spine degenerative changes are seen No fractures or abnormal masses were identified. IMPRESSION: 1. No interval change in comparison with CT on 05/14/2024. 2. Redemonstration of a 4 mm calculus in the left ureter orifice and another 4mm calculus in the left distal ureter, cause mild left hydronephrosis. 3. Sliding hiatus hernia with a large size of the stomach seen in the chest cavity. 4. Non-complicated sigmoid diverticulosis is noted. Electronically Signed by: Yenny Rodriguez MD. (05/17/2024 08:04:45 EST)
[2024-05-17 11:09] VITALS: BP 129/84; PULSE 78; RESP 16; O2SAT 96
== END 2024-05-17 11:24 | disposition short-term general hospital (02) ==
LOC: ED 05:55
DX: R07.9 Chest pain, unspecified (principal); R10.9 Unspecified abdominal pain; R11.2 Nausea with vomiting, unspecified; R53.1 Weakness; Z79.899 Other long term (current) drug therapy; K92.1 Melena; B34.9 Viral infection, unspecified; K57.92 Diverticulitis of intestine, part unspecified, without perforation or abscess without bleeding; N13.2 Hydronephrosis with renal and ureteral calculous obstruction
CPT/HCPCS: 36415; 74176; 80053; 81001; 82150; 83605; 83690; 84484; 85025; 86308; 87040; 87086; 93005; 96374; 96375; 99285; J2405

== ENCOUNTER 2025-02-15 20:17 | Emergency (ER) | payer MEDICARE ==
[2025-02-15 20:30] VITALS: TEMP 97.6
[2025-02-15 21:17] VITALS: O2SAT 97
--- NOTE | 2025-02-15 21:17 | ERPHSYRPT ---
- History of Present Illness Time Seen by Provider: 02/15/25 20:50 Source: patient Exam Limitations: no limitations Patient Subjective Stated Complaint: red itchy area to rt lower ext that is warm and swelled up worse but the swelling is now down. Triage Nursing Assessment: Pt ambulated into ER without diff, spouse at bedside. Pt c/o red dayanna rash that is warm to touch to rt lower ext that occured around 4am this morning. Bilat lower ext edema present and tender to touch but pt states "my legs always look like this". Pt ambulates without difficulty. Pt started a new medication Valsartan but that was over a month ago on 12/13/24 so she doesn't feel it's an allergic reaction. Timing/Duration: today Severity: mild Associated Symptoms: denies symptoms Allergies/Adverse Reactions: azithromycin Allergy (Verified 02/15/25 20:28) codeine Allergy (Verified 02/15/25 20:28) erythromycin base Allergy (Verified 02/15/25 20:28) gluten Allergy (Verified 02/15/25 20:28) Penicillins Allergy (Verified 02/15/25 20:28) banana Adverse Reaction (Mild, Verified 02/15/25 20:28) Nausea Home Medications: Calcium Carbonate/Vitamin D3 [Calcium 600-Vit D3 800 Tablet] 1 each PO DAILY 01/27/15 [History] Metoprolol Tartrate 25 mg [Lopressor 25MG Tab] 1.5 tab PO BID 07/04/15 [History] Famotidine 40 mg PO DAILY 02/07/22 [History] Sertraline HCl [Zoloft] 25 mg PO DAILY 02/07/22 [History] Furosemide 40 mg [Lasix 40 MG] 40 mg PO DAILY PRN 09/17/23 [History] Potassium Chloride 1 cap PO DAILY PRN PRN 09/17/23 [History] Atorvastatin Calcium 20 mg PO DAILY 02/15/25 [History] Multivit-Min/Iron/Folic/Lutein [Multivitamin Women 50 Plus Tab] 1 tab PO DAILY 02/15/25 [History] Valsartan 40 mg PO DAILY 02/15/25 [History] Hx Tetanus, Diphtheria Vaccination/Date Given: No Hx Influenza Vaccination/Date Given: No Hx Pneumococcal Vaccination/Date Given: Yes Travel Risk - International Travel Have you traveled outside of the country in past 3 weeks: No - Emerging Infectious Disease Are you exhibiting symptoms associated with any current EIDs: No Symptoms: Abdominal Pain, Diarrhea Comment: weakness - Review of Systems Constitutional: No Symptoms Eyes: No Symptoms Ears, Nose, & Throat: No Symptoms Respiratory: No Symptoms Cardiac: No Symptoms Abdominal/Gastrointestinal: No Symptoms Genitourinary Symptoms: No Symptoms Musculoskeletal: No Symptoms Skin: Cellulitis - Past Medical History Pertinent Past Medical History: Yes Neurological History: TIA ENT History: No Pertinent History Cardiac History: Arrhythmia, Other Respiratory History: No Pertinent History Endocrine Medical History: No Pertinent History Musculoskeletal History: No Pertinent History GI Medical History: GERD History: No Pertinent History Psycho-Social History: No Pertinent History Female Reproductive Disorders: No Pertinent History Other Medical History: liver ablasion - Past Surgical History Past Surgical History: Yes Neuro Surgical History: No Pertinent History Cardiac: Pacemaker Respiratory: No Pertinent History Gastrointestinal: Appendectomy, Hemorrhoidectomy, Hernia Repair Genitourinary: No Pertinent History Musculoskeletal: No Pertinent History Female Surgical History: Hysterectomy Other Surgical History: back surgery, ovarian cyst removal - Social History Smoking Status: Never smoker Exposure to second hand smoke: No Drug Use: none - Social Determinants of Health Will the patient participate in the screening: Yes Do you worry about a steady place to live?: No Do you have any problems with any of the following?: No known problems In the past 12 months,have you had to go without utilities?: No Transportation Issues: No Has anyone in your support network made you feel unsafe?: No Have you or anyone in your house had to go w/o enough food: No - Nursing Vital Signs Nursing Vital Signs: Initial Vital Signs Temperature 97.6 F 02/15/25 20:28 Pulse Rate 64 02/15/25 20:28 Respiratory Rate 17 02/15/25 20:28 Blood Pressure 150/112 02/15/25 20:28 O2 Sat by Pulse Oximetry 97 02/15/25 20:28 Pain Scale Pain Intensity 0 - Physical Exam General Appearance: no apparent distress Eye Exam: PERRL/EOMI Ears, Nose, Throat Exam: normal ENT inspection Neck Exam: normal inspection Respiratory Exam: normal breath sounds Cardiovascular Exam: regular rate/rhythm Gastrointestinal/Abdomen Exam: soft, normal bowel sounds Extremity Exam: other (erythema noted to the right lateral leg above the right lateral malleolus and measuring about 6- 8 inches cephalad there is minimal warmth ) SpO2: 97 - Progress Progress Note: . Patient was seen and evaluated for her complaints she does not want IV antibiotics at this time or lab work and prefers oral or IM medication she was given wound care precautions and informed of the need for follow-up with her primary care provider in the morning she will be discharged home with antibiotics- bactrim and keflex were prescibed - patient was offered IM rocephin but did not want to receive it here in the department . she is agreeable to keflex and is aware of the chance of cross reactivity given her allergy to pcn . Nursing staff present for the discussion 02/15/25 21:15 02/15/25 21:24 Medical Desision Making - Discussion of managment Reviewed:: Need for additional workup - Departure Departure Disposition: Home Clinical Impression: Cellulitis of right lower extremity Condition: Stable Critical Care Time: No Referrals: ADRIANA PATRICIO NP [Primary Care Provider, [facility]] - Follow up/PCP as directed Prescriptions: Sulfamethoxazole/Trimethoprim [Bactrim Ds Tablet] 1 each PO BID 8 Days #16 tablet Cephalexin Mh 500 mg [Keflex 500 mg] 500 mg PO TID #21 cap
[2025-02-15 21:40] VITALS: BP 120/86; PULSE 60; RESP 18
== END 2025-02-15 21:35 | disposition home or self-care (01) ==
LOC: ED 20:17
DX: L03.115 Cellulitis of right lower limb (principal); Z79.899 Other long term (current) drug therapy